=== PATIENT | female | born 1985 | race African-American/Black ===

== ENCOUNTER 2016-08-29 19:09 | Inpatient (IN) | payer BC, OTHER ==
[~2016-08-29] VITALS: Ht 180.3 cm; Wt 59.8 kg
[~2016-08-29 19:09] MED LIST: MACR100C PO; POLY10O EACH EYE; PYRI200T4 PO
[2016-08-29 19:13] VITALS: BP 132/83; PULSE 127; RESP 16; TEMP 102.8; O2SAT 97
--- NOTE | 2016-08-29 20:05 | PD ---
HPI Chief Complaint: Respiratory Symptoms Time Seen by Provider: 20:05 Travel History International Travel<30 days: No Contact w/Intl Traveler<30days: No Traveled to known affect area: No History of Present Illness HPI 31-year-old Afro-Iranian female presents the emergency department with 3 day history of generalized aches, cough, sore throat, and myalgias and generalized weakness. Patient has decreased appetite denies nausea vomiting or diarrhea. Patient denies urinary symptoms although she does have decreased urine output. Patient has noted a fever 102.5 in triage. Patient is very listless and weak. She denies shortness of breath or difficulty breathing. She has no known drug allergies. PFSH Past Medical History Depression: Yes Diabetes: No Diminished Hearing: No Immunizations Current: Yes ?: Not Menopausal: No : 5 Para: 4 Miscarriage: 2 : 1 Tubal Ligation: Yes Past Surgical History Section: Yes (X3) Hysterectomy: Yes (LEFT OOPHERECTOMY R/T TUBAL PREG) Social History Alcohol Use: No Tobacco Use: No Substance Use: No Allergies-Medications (Allergen,Severity, Reaction): Coded Allergies: No Known Allergies (Unverified , 08/29/16) Reported Meds & Prescriptions Reported Meds & Active Scripts Active No Active Prescriptions or Reported Medications Review of Systems Except as stated in HPI: all other systems reviewed are Neg General / Constitutional: Positive: Fever, Chills Eyes: No: Visual changes HENT: Positive: Headaches, Sore Throat, Rhinitis, Rhinorrhea, Congestion, No: Vertigo, Lightheadedness, Nosebleed, Neck Stiffness, Neck Pain, Dental Difficulties, Ear Discharge, Earache Cardiovascular: No: Chest Pain or Discomfort Respiratory: Positive: Cough, No: Shortness of Breath, Wheezing, Sneezing, Orthopnea, Hemoptysis, Pleuritic Pain Gastrointestinal: Positive: Loss of Appetite, No: Nausea, Vomiting, Diarrhea, Abdominal Pain Genitourinary: No: Dysuria Musculoskeletal: Positive: Myalgias, No: Pain Skin: No Rash Neurologic: No: Weakness Psychiatric: No: Depression Endocrine: No: Polydipsia Hematologic/Lymphatic: No: Easy Bruising Physical Exam Narrative GENERAL: Patient appears ill border going on sepsis, very listless and obviously sick. SKIN: Warm and dry. Normal color. Poor turgor. HEAD: Atraumatic. Normocephalic. EYES: Pupils equal and round. No scleral icterus. No injection or drainage. ENT: No nasal bleeding or discharge. Mucous membranes pink and dry. Pharynx is unremarkable. TMs are clear. NECK: Trachea midline. Supple and nontender without significant lymphadenopathy. CARDIOVASCULAR: Tachycardic rate and normal rhythm. RESPIRATORY: No accessory muscle use. Clear to auscultation. Breath sounds equal bilaterally. GASTROINTESTINAL: Abdomen soft, non-tender, nondistended. Hepatic and splenic margins not palpable. MUSCULOSKELETAL: Extremities without clubbing, cyanosis, or edema. No obvious deformities. NEUROLOGICAL: Awake and alert. No obvious cranial nerve deficits. Motor grossly within normal limits. Five out of 5 muscle strength in the arms and legs. Normal speech. PSYCHIATRIC: Appropriate mood and affect; insight and judgment normal. Data Data Last Documented VS Vital Signs Date Time Temp Pulse Resp B/P Pulse Ox O2 Delivery O2 Flow Rate FiO2 08/29/16 20:37 18 99 Room Air 08/29/16 20:09 103.2 108 117/73 Orders Complete Blood Count With Diff (08/29/16 20:16) Comprehensive Metabolic Panel (08/29/16 20:16) Lactic Acid (08/29/16 20:16) Urinalysis - C+S If Indicated (08/29/16 20:16) Iv Access Insert/Monitor (08/29/16 20:16) Ecg Monitoring (08/29/16 20:16) Oximetry (08/29/16 20:16) Ondansetron Inj (Zofran Inj) (08/29/16 20:30) Sodium Chlor 0.9% 1000 Ml Inj (Ns 1000 M (08/29/16 20:16) Sodium Chloride 0.9% Flush (Ns Flush) (08/29/16 20:30) Ketorolac Inj (Toradol Inj) (08/29/16 20:30) Chest, Single Ap (08/29/16 20:16) Blood Culture (08/29/16 20:16) Acetaminophen (Tylenol) (08/29/16 20:30) Influenzae A/B Antigen (08/29/16 20:16) Sodium Chlor 0.9% 1000 Ml Inj (Ns 1000 M (08/29/16 20:30) MDM Medical Decision Making Medical Screen Exam Complete: Yes Emergency Medical Condition: Yes Differential Diagnosis Viral illness. Febrile illness. Dehydration. Influenza. Pneumonia. Narrative Course Patient is ill but apparently medically stable at time of exam. Labs ordered including CBC, CMP, lactic acid, blood cultures 2, and urinalysis. Chest x-ray is ordered. Rapid influenza A is ordered. IV access is obtained of the patient is given 30 mg Toradol IV, 4 mg Zofran IV, and 1000 mg acetaminophen by mouth. Patient is given 2 L normal saline bolus. 2044 hrs. patient is discussed with Dr. Farah who assumes care of the patient. Final disposition will be determined by her. Scripts No Active Prescriptions or Reported Meds Condition: Stable Rashawn Higuera Aug 29, 2016 20:05
[2016-08-29 20:09] VITALS: BP 117/73; PULSE 108; RESP 18; TEMP 103.2; O2SAT 99
[2016-08-29] MEDS ORDERED: SODIUM CHLOR 0.9% 1000 ML INJ 1,000 ML IV SCH ×2 (20:16→23:30)
[2016-08-29] MEDS ORDERED: KETOROLAC TROMETHAMINE 30 MG/ML (IVP) VIAL IVP ONE (20:30)
[2016-08-29] MEDS ORDERED: ONDANSETRON HCL 4 MG/2 ML VIAL IVP ONE (20:30)
[2016-08-29] MEDS ORDERED: ACETAMINOPHEN 500 MG CPLT PO ONE (20:30)
[2016-08-29] MEDS ORDERED: SODIUM CHLOR 0.9% 1000 ML INJ 1,000 ML IV ONE (20:30)
[2016-08-29] MEDS: SODIUM CHLORIDE 0.9% FLUSH 5 ML FLUSH IVF PRN ×2 (20:34→23:13)
[2016-08-29 20:37] VITALS: RESP 18; O2SAT 99
[2016-08-29 20:48] LABS: AUTOMATED NEUTROPHIL # 4.8 TH/MM3 (1.8-7.7); BASOPHIL % 0.4 % (0.0-2.0); HEMATOCRIT 34.6 % (35.0-46.0); HEMO FLAGS DIFF FINAL; LYMPH % 12.8 % (9.0-44.0); LYMPHOCYTE # 0.8 TH/MM3 (1.0-4.8); MEAN CELL VOLUME 88.8 FL (80.0-100.0); MEAN CORPUSCULAR HEMOGLOBIN 29.6 PG (27.0-34.0); MEAN CORPUSCULAR HGB CONC 33.4 % (32.0-36.0); MONO % 11.3 % (0.0-8.0); NEUT % 75.5 % (16.0-70.0); PLATELET COUNT 108 TH/MM3 (150-450); RED CELL DISTRIBUTION WIDTH 14.1 % (11.6-17.2); WHITE BLOOD COUNT 6.3 TH/MM3 (4.0-11.0)
[2016-08-29 21:11] LABS: ANION GAP 12 MEQ/L (5-15); AST (GOT) 13 U/L (15-37); BICARBONATE 22.5 MEQ/L (21.0-32.0); BLOOD UREA NITROGEN 8 MG/DL (7-18); CHLORIDE 104 MEQ/L (98-107); GLOMERULAR FILTRATION RATE 52 ML/MIN (>89); SODIUM (NA) 138 MEQ/L (136-145)
[2016-08-29 21:14] LABS: ALKALINE PHOSPHATASE 55 U/L (45-117); ALT (GPT) 17 U/L (10-53); TOTAL BILIRUBIN ADULT 0.3 MG/DL (0.2-1.0)
--- NOTE | 2016-08-29 21:30 | RADRPT ---
EXAM DATE/TIME: 08/29/2016 20:25 [facility] COMPARISON: No previous studies available for comparison. INDICATIONS : SOB, Fever MEDICAL HISTORY : None. SURGICAL HISTORY : None. ENCOUNTER: Initial ACUITY: 1 day PAIN SCORE: 0/10 LOCATION: chest FINDINGS: A single view of the chest demonstrates the lungs to be symmetrically aerated without evidence of mas s, infiltrate or effusion. The cardiomediastinal contours are unremarkable. Osseous structures are intact. CONCLUSION: No evidence of acute cardiopulmonary disease. Tom Freeman MD on August 29, 2016 at 21:28 Board Certified Radiologist. This report was verified electronically.
[2016-08-29 21:53] VITALS: TEMP 100.1
[2016-08-29 22:40] LABS: BACTERIA, URINE FEW /hpf; BLOOD, URINE SMALL (NEG); COMMENT (UR) CULTURE INDICATED; CULTURE IF INDICATED CULTURE INDICATED; GLUCOSE,URINE TRACE mg/dL (NEG); KETONE, URINE 10 mg/dL (NEG); MUCUS URINE MANY /lpf (OCC); NITRITE,URINE NEG (NEG); PH, URINE 6.5 (5.0-8.5); SQUAMOUS EPITHELIAL CELL URINE 3 /hpf (0-5); URINE COLOR YELLOW (YELLW/STRAW)
[2016-08-29] MEDS ORDERED: cefTRIAXone INJ 1,000 MG in SODIUM CHLORIDE 0.9% INJ 100 ML IV ONE (23:00)
--- NOTE | 2016-08-29 23:36 | HHI.HP ---
[facility] Primary Care Physician No Primary Care Physician Admission Diagnosis sepsis, urinary tract infection Diagnoses: (1) Sepsis Diagnosis: Principal (2) UTI (urinary tract infection) Diagnosis: Principal (3) JOE (acute kidney injury) Diagnosis: Principal (4) Hypokalemia Diagnosis: Principal Travel History International Travel<30 Days: No Contact w/Intl Traveler <30 Da: No Traveled to Known Affected Are: No History of Present Illness This is a 31-year-old female with a PMH of Depression who presents to the ER with complaints of generalized fatigue, nonproductive cough and sore throat x3 days. Notes decreased PO intake and fever at home, temp 102.5 while in triage. Denies sick contacts. On arrival, BP 132/83, HR 127, O2 sat 97% on RA, Temp 102.8, Tmax 103.2. WBC normal. Platelets 108, previously 125 on 07/03/14. K+ 3.0. Creatinine 1.43, previously 0.94 on 05/24/16. Lactic Acid 3.3, repeat pending. U/a w/ significant UTI. CXR w/ no acute findings. S/p Blood/Urine cultures in ER, IVF and IV Rocephin. Review of Systems Except as stated in HPI: all other systems reviewed are Neg ROS: 14 point review of systems otherwise negative. Past Family Social History Past Medical History PMH: Depression Past Surgical History PAST SURGICAL HISTORY: Left Oophorectomy, Allergies: Coded Allergies: No Known Allergies (Unverified , 08/29/16) Family History PAST FAMILY HISTORY: Reviewed. No h/o DM or CAD Social History PAST SOCIAL HISTORY: Negative for alcohol, tobacco or drugs. Physical Exam Vital Signs Vital Signs Date Time Temp Pulse Resp B/P Pulse Ox O2 Delivery O2 Flow Rate FiO2 08/29/16 21:53 100.1 08/29/16 20:37 18 99 Room Air 08/29/16 20:09 103.2 108 18 117/73 99 Room Air 08/29/16 19:13 102.8 127 16 132/83 97 Room Air Physical Exam PE: GENERAL: Young black female in no acute distress, flat affect, minimally communicative. HEENT: PERRLA, EOMI. No scleral icterus or conjunctival pallor. No lid lag or facial droop. CARDIOVASCULAR: Regular rate and rhythm. No obvious murmurs to auscultation. No chest tenderness to palpation. RESPIRATORY: No obvious rhonchi or wheezing. Clear to auscultation. Breath sounds equal bilaterally. GASTROINTESTINAL: Abdomen soft, non-tender, nondistended. BS normal. MUSCULOSKELETAL: Extremities without clubbing, cyanosis, or edema. No obvious deformities. NEUROLOGICAL: Awake, alert and oriented x4. No focal neurologic deficits. Moving both upper and lower extremities spontaneously. Laboratory Laboratory Tests Test 08/29/16 08/29/16 08/29/16 20:27 20:32 22:15 White Blood Count 6.3 Red Blood Count 3.90 Hemoglobin 11.6 Hematocrit 34.6 Mean Corpuscular Volume 88.8 Mean Corpuscular Hemoglobin 29.6 Mean Corpuscular Hemoglobin 33.4 Concent Red Cell Distribution Width 14.1 Platelet Count 108 Mean Platelet Volume 10.3 Neutrophils (%) (Auto) 75.5 Lymphocytes (%) (Auto) 12.8 Monocytes (%) (Auto) 11.3 Eosinophils (%) (Auto) 0.0 Basophils (%) (Auto) 0.4 Neutrophils # (Auto) 4.8 Lymphocytes # (Auto) 0.8 Monocytes # (Auto) 0.7 Eosinophils # (Auto) 0.0 Basophils # (Auto) 0.0 CBC Comment DIFF FINAL Differential Comment Sodium Level 138 Potassium Level 3.0 Chloride Level 104 Carbon Dioxide Level 22.5 Anion Gap 12 Blood Urea Nitrogen 8 Creatinine 1.43 Estimat Glomerular Filtration 52 Rate Random Glucose 145 Calcium Level 8.4 Total Bilirubin 0.3 Aspartate Amino Transf 13 (AST/SGOT) Alanine Aminotransferase 17 (ALT/SGPT) Alkaline Phosphatase 55 Total Protein 8.9 Albumin 3.3 Lactic Acid Level 3.3 Urine Color YELLOW Urine Turbidity HAZY Urine pH 6.5 Urine Specific [place] 1.031 Urine Protein 100 Urine Glucose (UA) TRACE Urine Ketones 10 Urine Occult Blood SMALL Urine Nitrite NEG Urine Bilirubin NEG Urine Urobilinogen GREATER THAN 12.0 Urine Leukocyte Esterase LARGE Urine RBC 12 Urine WBC 80 Urine Squamous Epithelial 3 Cells Urine Bacteria FEW Urine Mucus MANY Microscopic Urinalysis Comment CULTURE INDICATED Date/Time Procedure Status Source Growth 08/29/16 22:15 Urine Culture Received Urine Clean Catch Pending 08/29/16 21:45 Aerobic Blood Culture Received Blood Peripheral Pending 08/29/16 21:45 Anaerobic Blood Culture Received Blood Peripheral Pending 08/29/16 20:28 Influenza Types A,B Antigen (RULA) - Final Complete Nasal Washing NEGATIVE FOR FLU A AND B ANTIGEN.... Result Diagram: 08/29/16202608/29/162026 Assessment and Plan Problem List: (1) Sepsis ICD Code: A41.9 Status: Acute (2) UTI (urinary tract infection) ICD Code: N39.0 Status: Acute (3) JOE (acute kidney injury) ICD Code: N17.9 Status: Acute (4) Hypokalemia ICD Code: E87.6 Status: Acute Assessment and Plan A/P: 1. Sepsis: Temp 103.2, HR 120's, Lactic Acid 3.3, Source-UTI. S/p Blood/ Urine Cultures, IVF and IV Rocephin in ER. Follow up cultures, continue IVF and IV Abx. CXR w/ no acute findings, images reviewed by me. Repeat Lactic Acid pending. 2. UTI: U/a w/ significant UTI. Continue w/ IVF and IV Abx as above. 3. JOE: Creatinine 1.43, previously 0.94 on 05/24/16, likely secondary to dehydration from UTI/Sepsis. IVF, repeat labs in am. 4. Hypokalemia: K+ 3.0, will replace and recheck in am. 5. DVT Prophylaxis: SCD/Teds. 6. Social work for d/c planning as needed. 7. Case discussed w/ ER physician at length. Physician Certification 2 Midnight Certification Type: Admission for Inpatient Services Order for Inpatient Services The services are ordered in accordance with Medicare regulations or non- Medicare payer requirements, as applicable. In the case of services not specified as inpatient-only, they are appropriately provided as inpatient services in accordance with the 2-midnight benchmark. Estimated LOS (days): 2 days is the estimated time the patient will need to remain in the hospital, assuming treatment plan goals are met and no additional complications. Post-Hospital Plan: Home Heather Farias MD Aug 29, 2016 23:36
[2016-08-29] MEDS ORDERED: SODIUM CHLORIDE 0.9% FLUSH 5 ML FLUSH FLUSH PRN (23:45)
[2016-08-29] MEDS ORDERED: BISACODYL 10 MG SUPP PR PRN (23:45)
[2016-08-29] MEDS ORDERED: POTASSIUM CHLORIDE 20 MEQ CONTROLLED RELEASE TAB PO ONE (23:45)
[2016-08-29] MEDS ORDERED: ONDANSETRON HCL 4 MG/2 ML VIAL IVP PRN (23:45)
[2016-08-29] MEDS ORDERED: ACETAMINOPHEN/HYDROcodone 325 MG/5 MG TAB PO PRN (23:45)
[2016-08-29] MEDS: SODIUM CHLOR 0.9% 1000 ML INJ 1,000 ML IV SCH (23:54)
[2016-08-30] VITALS (11 sets, daily range): BP systolic 116–154; BP diastolic 73–92; PULSE 69–120; RESP 16–24; TEMP 99.4–105; O2SAT 92–100
--- NOTE | 2016-08-30 00:49 | PD ---
Data Data Last Documented VS Vital Signs Date Time Temp Pulse Resp B/P Pulse Ox O2 Delivery O2 Flow Rate FiO2 08/29/16 21:53 100.1 08/29/16 20:37 18 99 Room Air 08/29/16 20:09 108 117/73 Orders Complete Blood Count With Diff (08/29/16 20:16) Comprehensive Metabolic Panel (08/29/16 20:16) Lactic Acid (08/29/16 20:16) Urinalysis - C+S If Indicated (08/29/16 20:16) Iv Access Insert/Monitor (08/29/16 20:16) Ecg Monitoring (08/29/16 20:16) Oximetry (08/29/16 20:16) Ondansetron Inj (Zofran Inj) (08/29/16 20:30) Sodium Chlor 0.9% 1000 Ml Inj (Ns 1000 M (08/29/16 20:16) Sodium Chloride 0.9% Flush (Ns Flush) (08/29/16 20:30) Ketorolac Inj (Toradol Inj) (08/29/16 20:30) Chest, Single Ap (08/29/16 20:16) Blood Culture (08/29/16 20:16) Acetaminophen (Tylenol) (08/29/16 20:30) Influenzae A/B Antigen (08/29/16 20:16) Sodium Chlor 0.9% 1000 Ml Inj (Ns 1000 M (08/29/16 20:30) Urine Culture (08/29/16 22:15) Ceftriaxone Inj (Rocephin Inj) (08/29/16 23:00) Lactic Acid (08/29/16 22:47) Sodium Chlor 0.9% 1000 Ml Inj (Ns 1000 M (08/29/16 23:30) Admit Order (Ed Use Only) (08/29/16 ) Labs Laboratory Tests Test 08/29/16 08/29/16 08/29/16 08/29/16 20:27 20:32 22:15 23:10 White Blood Count 6.3 TH/MM3 Red Blood Count 3.90 MIL/MM3 Hemoglobin 11.6 GM/DL Hematocrit 34.6 % Mean Corpuscular Volume 88.8 FL Mean Corpuscular Hemoglobin 29.6 PG Mean Corpuscular Hemoglobin 33.4 % Concent Red Cell Distribution Width 14.1 % Platelet Count 108 TH/MM3 Mean Platelet Volume 10.3 FL Neutrophils (%) (Auto) 75.5 % Lymphocytes (%) (Auto) 12.8 % Monocytes (%) (Auto) 11.3 % Eosinophils (%) (Auto) 0.0 % Basophils (%) (Auto) 0.4 % Neutrophils # (Auto) 4.8 TH/MM3 Lymphocytes # (Auto) 0.8 TH/MM3 Monocytes # (Auto) 0.7 TH/MM3 Eosinophils # (Auto) 0.0 TH/MM3 Basophils # (Auto) 0.0 TH/MM3 CBC Comment DIFF FINAL Differential Comment Sodium Level 138 MEQ/L Potassium Level 3.0 MEQ/L Chloride Level 104 MEQ/L Carbon Dioxide Level 22.5 MEQ/L Anion Gap 12 MEQ/L Blood Urea Nitrogen 8 MG/DL Creatinine 1.43 MG/DL Estimat Glomerular Filtration 52 ML/MIN Rate Random Glucose 145 MG/DL Calcium Level 8.4 MG/DL Total Bilirubin 0.3 MG/DL Aspartate Amino Transf 13 U/L (AST/SGOT) Alanine Aminotransferase 17 U/L (ALT/SGPT) Alkaline Phosphatase 55 U/L Total Protein 8.9 GM/DL Albumin 3.3 GM/DL Lactic Acid Level 3.3 mmol/L 0.8 mmol/L Urine Color YELLOW Urine Turbidity HAZY Urine pH 6.5 Urine Specific [place] 1.031 Urine Protein 100 mg/dL Urine Glucose (UA) TRACE mg/dL Urine Ketones 10 mg/dL Urine Occult Blood SMALL Urine Nitrite NEG Urine Bilirubin NEG Urine Urobilinogen GREATER THAN 12.0 MG/DL Urine Leukocyte Esterase LARGE Urine RBC 12 /hpf Urine WBC 80 /hpf Urine Squamous Epithelial 3 /hpf Cells Urine Bacteria FEW /hpf Urine Mucus MANY /lpf Microscopic Urinalysis Comment CULTURE INDICATED MDM Supervised Visit with ALLIE: Yes Narrative Course The history, exam, and medical decision-making in the associated midlevel provider note were completed with my assistance. I reviewed and agree with the findings presented. I attest that I had a [id number] encounter with the patient on the same day, and personally performed and documented my assessment and findings in the medical record. *My assessment and Findings: This is a 31-year-old female who presents to the emergency department with fevers, chills and body aches. She was febrile on arrival. She was found to have a urinary tract infection. She is somewhat bizarre and exam, and I think it's due to underlying psychiatric disease but I' m concerned she may have some delirium in the setting of dehydration. She has an elevated lactic acid and some renal insufficiency consistent with dehydration. Patient will be admitted for IV hydration and continued antibiotic therapy in the setting of sepsis. Diagnosis Primary Impression: Sepsis Qualified Code: A41.9 - Sepsis, due to unspecified organism Additional Impression: UTI (urinary tract infection) Qualified Code: N30.00 - Acute cystitis without hematuria Scripts No Active Prescriptions or Reported Meds Condition: Stable Jana Farah MD Aug 30, 2016 00:49
[2016-08-30] MEDS: ACETAMINOPHEN/HYDROcodone 325 MG/10 MG TAB PO PRN ×2 (04:29→08:28)
[2016-08-30 05:49] LABS: AUTOMATED NEUTROPHIL # 3.2 TH/MM3 (1.8-7.7); BASOPHIL % 0.3 % (0.0-2.0); EOSINOPHIL % 0.3 % (0.0-4.0); LYMPH % 22.6 % (9.0-44.0); LYMPHOCYTE # 1.1 TH/MM3 (1.0-4.8); MEAN CELL VOLUME 89.8 FL (80.0-100.0); MEAN CORPUSCULAR HEMOGLOBIN 29.8 PG (27.0-34.0); MEAN CORPUSCULAR HGB CONC 33.2 % (32.0-36.0); MONO % 12.4 % (0.0-8.0); NEUT % 64.4 % (16.0-70.0); PLATELET COUNT 80 TH/MM3 (150-450); RED BLOOD COUNT 3.35 MIL/MM3 (4.00-5.30); RED CELL DISTRIBUTION WIDTH 13.9 % (11.6-17.2)
[2016-08-30 05:52] LABS: HEMO FLAGS AUTO DIFF
[2016-08-30] MEDS: SODIUM CHLOR 0.9% 1000 ML INJ 1,000 ML IV SCH ×3 (06:10→19:13)
[2016-08-30 06:24] LABS: ALKALINE PHOSPHATASE 42 U/L (45-117); ALT (GPT) 14 U/L (10-53); ANION GAP 9 MEQ/L (5-15); AST (GOT) 11 U/L (15-37); BICARBONATE 21.7 MEQ/L (21.0-32.0); BLOOD UREA NITROGEN 7 MG/DL (7-18); CHLORIDE 112 MEQ/L (98-107); GLOMERULAR FILTRATION RATE 117 ML/MIN (>89); POTASSIUM 3.9 MEQ/L (3.5-5.1); SODIUM (NA) 143 MEQ/L (136-145); TOTAL BILIRUBIN ADULT 0.4 MG/DL (0.2-1.0)
[2016-08-30 07:34] LABS: PLATELET ESTIMATE SMEAR LOW (NORMAL); PLATELET MORPHOLOGY NORMAL (NORMAL); SCAN/DIFF AUTO DIFF CONFIRMED
[2016-08-30] MEDS: SODIUM CHLORIDE 0.9% FLUSH 5 ML FLUSH FLUSH SCH ×2 (07:36→21:33)
--- NOTE | 2016-08-30 10:56 | HHI.PR ---
Subjective Remarks Patient complained of sore throat, she had a fever of 100 per the nurse today, no nausea or vomiting or diarrhea or dysuria Objective Vitals Vital Signs Date Time Temp Pulse Resp B/P Pulse Ox O2 Delivery O2 Flow Rate FiO2 08/30/16 09:45 100.0 08/30/16 08:47 100.1 97 16 123/74 98 08/30/16 06:09 16 08/30/16 04:00 99.5 89 17 116/78 99 08/30/16 01:51 86 17 116/76 100 08/30/16 00:00 69 18 116/80 100 Room Air 08/29/16 21:53 100.1 08/29/16 20:37 18 99 Room Air 08/29/16 20:09 103.2 108 18 117/73 99 Room Air 08/29/16 19:13 102.8 127 16 132/83 97 Room Air Result Diagram: 08/30/16 0509 08/30/16 0509 Objective Remarks GENERAL: This is a well-nourished, well-developed patient, in no apparent distress. SKIN: No rashes, warm and dry HEAD: Atraumatic. Normocephalic. EYES: Pupils equal round and reactive. Extraocular motions intact. No scleral icterus. ENT: Nose without bleeding, or drainage, Airway patent. NECK: Trachea midline. Supple CARDIOVASCULAR: Regular rate and rhythm without murmurs, gallops, or rubs. RESPIRATORY: Fair air entry bilaterally. No wheezes, rales, or rhonchi. GASTROINTESTINAL: Abdomen soft, non-tender, nondistended. Positive bowel sounds MUSCULOSKELETAL: Extremities without clubbing, cyanosis, or edema. Pedal pulses appreciated NEUROLOGICAL: Awake and alert. Moves all extremity. Normal speech.no focal neurological deficit A/P Problem List: (1) Sepsis ICD Code: A41.9 Status: Acute (2) UTI (urinary tract infection) ICD Code: N39.0 Status: Acute (3) JOE (acute kidney injury) ICD Code: N17.9 Status: Acute (4) Hypokalemia ICD Code: E87.6 Status: Acute Assessment and Plan - Sepsis with lactic acidosis: Temp 103.2, HR 120's, Lactic Acid 3.3, Source- UTI. S/p Blood/Urine Cultures, continue IVF and IV Rocephin Follow up cultures, CXR w/ no acute findings, images reviewed by me. Repeat Lactic Acid WNL 0.8, initially 3.3 - Sore throat with difficulty swallowing: We'll check throat culture for group A strep and influenza screening - UTI: U/a w/ significant UTI. Continue w/ IVF and IV Abx as above. - JOE: Creatinine 1.43, previously 0.94 on 05/24/16, likely secondary to dehydration from UTI/Sepsis. IVF, repeat labs in am. - Hypokalemia: Improved 3.9 today, initially K+ 3.0, S/P replace, monitor BMP. - DVT Prophylaxis: SCD/Teds. Problem Qualifiers (1) Sepsis: Qualified Code: A41.9 - Sepsis, due to unspecified organism (2) UTI (urinary tract infection): Qualified Code: N30.00 - Acute cystitis without hematuria Darwin Hartmann MD Aug 30, 2016 10:56
[2016-08-30] MEDS: ACETAMINOPHEN 325 MG TAB PO PRN (12:09)
[2016-08-30] MEDS ORDERED: Vancomycin Consult Pharmacy 1 EA OTHER SCH (17:15)
[2016-08-30] MEDS ORDERED: ACETAMINOPHEN 1000 MG/100 ML VIAL IV STA (17:23)
[2016-08-30] MEDS ORDERED: LORazepam 2 MG/ML VIAL IV STA (17:23)
--- NOTE | 2016-08-30 17:40 | PD.CONS ---
HPI Service Critical Care Medicine Consult Requested By Reason for Consult Fever Primary Care Physician No Primary Care Physician History of Present Illness 31-year-old female with a history of Depression presented to the emergency room with complaints of generalized fatigue, nonproductive cough and sore throat x3 days. She had also decreased I mouth intake and fever at home, temp 102.5 while in triage. Denies sick contacts. On arrival, BP 132/83, HR 127, O2 sat 97% on RA, Tmax 103.2. WBC normal. Platelets 108, previously 125 on 07/03/14. Patient was admitted to medical floor however today became more febrile with temperature 105, looking more ill and is transferred to ICU. Review of Systems ROS Unable to obtain patient is too lethargic Past Family Social History Allergies: Coded Allergies: No Known Allergies (Unverified , 08/29/16) Past Medical History Depression Past Surgical History Left Oophorectomy, Reported Medications Reported Meds & Active Scripts Active No Active Prescriptions or Reported Medications Active Ordered Medications Current Medications Medications (Trade) Dose Ordered Sig/Ihs Route PRN Reason Start Time Stop Time Status Last Admin Dose Admin Ceftriaxone Sodium 1000 mg/ Sodium Chloride 100 ml @ 200 mls/hr Q24H IV 08/30/16 21:00 Sodium Chloride (NS 1000 ml Inj) 1,000 ml @ 150 mls/hr Q6H40M IV 08/29/16 23:33 08/30/16 11:30 IV Flush (NS Flush) 2 ml UNSCH PRN FLUSH FLUSH AFTER USING IV ACCESS 08/29/16 23:45 IV Flush (NS Flush) 2 ml BID FLUSH 08/30/16 09:00 Ondansetron HCl (Zofran Inj) 4 mg Q6H PRN IVP NAUSEA OR VOMITING 08/29/16 23:45 Bisacodyl (Dulcolax Supp) 10 mg DAILY PRN NC CONSTIPATION 08/29/16 23:45 Acetaminophen (Tylenol) 650 mg Q6H PRN PO FEVER/PAIN SCALE 1 TO 2 08/29/16 23:45 08/30/16 12:09 Acetaminophen/ Hydrocodone Bitart ([place] 5-325 Mg) 1 tab Q4H PRN PO PAIN SCALE 3 TO 5 08/29/16 23:45 Acetaminophen/ Hydrocodone Bitart 1 tab 1 tab Q4H PRN PO PAIN SCALE 6 TO 10 08/29/16 23:45 08/30/16 08:28 Pharmacy Profile Note ml @ 0 mls/hr UNSCH OTHER 08/30/16 17:15 Vancomycin HCl/ Sodium Chloride (Vancomycin Inj/ NS 250 ml Inj) 250 ml @ 250 mls/hr Q8H IV 08/30/16 18:00 Miscellaneous Information SPECIFIC LAB TO BE DRAWN:VANCOMY... ONCE ONCE XX 09/01/16 01:45 09/01/16 01:46 Piperacillin Sod/ Tazobactam Sod (Zosyn 4.5 Gm Premix) 100 ml @ 200 mls/hr Q6H IV 08/30/16 18:00 Family History Noncontributory Social History Negative for tobacco alcohol or illicit drug abuse Physical Exam Vital Signs Vital Signs Date Time Temp Pulse Resp B/P Pulse Ox O2 Delivery O2 Flow Rate FiO2 08/30/16 12:51 101.3 120 16 124/73 99 08/30/16 09:45 100.0 08/30/16 08:47 100.1 97 16 123/74 98 08/30/16 06:09 16 08/30/16 04:00 99.5 89 17 116/78 99 08/30/16 01:51 86 17 116/76 100 08/30/16 00:00 69 18 116/80 100 Room Air 08/29/16 21:53 100.1 08/29/16 20:37 18 99 Room Air 08/29/16 20:09 103.2 108 18 117/73 99 Room Air 08/29/16 19:13 102.8 127 16 132/83 97 Room Air Physical Exam GENERAL: Well-nourished, well-developed patient. SKIN: Warm and dry. HEAD: Normocephalic. EYES: No scleral icterus. No injection or drainage. NECK: Supple, trachea midline. No JVD or lymphadenopathy. CARDIOVASCULAR: Regular rate and rhythm without murmurs, gallops, or rubs. RESPIRATORY: Breath sounds equal bilaterally. No accessory muscle use. GASTROINTESTINAL: Abdomen soft, non-tender, nondistended. MUSCULOSKELETAL: No cyanosis, or edema. BACK: Nontender without obvious deformity. No CVA tenderness. Laboratory Laboratory Tests Test 08/29/16 08/29/16 08/29/16 08/29/16 20:27 20:32 22:15 23:10 White Blood Count 6.3 Red Blood Count 3.90 Hemoglobin 11.6 Hematocrit 34.6 Mean Corpuscular Volume 88.8 Mean Corpuscular Hemoglobin 29.6 Mean Corpuscular Hemoglobin 33.4 Concent Red Cell Distribution Width 14.1 Platelet Count 108 Mean Platelet Volume 10.3 Neutrophils (%) (Auto) 75.5 Lymphocytes (%) (Auto) 12.8 Monocytes (%) (Auto) 11.3 Eosinophils (%) (Auto) 0.0 Basophils (%) (Auto) 0.4 Neutrophils # (Auto) 4.8 Lymphocytes # (Auto) 0.8 Monocytes # (Auto) 0.7 Eosinophils # (Auto) 0.0 Basophils # (Auto) 0.0 CBC Comment DIFF FINAL Differential Comment Sodium Level 138 Potassium Level 3.0 Chloride Level 104 Carbon Dioxide Level 22.5 Anion Gap 12 Blood Urea Nitrogen 8 Creatinine 1.43 Estimat Glomerular Filtration 52 Rate Random Glucose 145 Calcium Level 8.4 Total Bilirubin 0.3 Aspartate Amino Transf 13 (AST/SGOT) Alanine Aminotransferase 17 (ALT/SGPT) Alkaline Phosphatase 55 Total Protein 8.9 Albumin 3.3 Lactic Acid Level 3.3 0.8 Urine Color YELLOW Urine Turbidity HAZY Urine pH 6.5 Urine Specific [place] 1.031 Urine Protein 100 Urine Glucose (UA) TRACE Urine Ketones 10 Urine Occult Blood SMALL Urine Nitrite NEG Urine Bilirubin NEG Urine Urobilinogen GREATER THAN 12.0 Urine Leukocyte Esterase LARGE Urine RBC 12 Urine WBC 80 Urine Squamous Epithelial 3 Cells Urine Bacteria FEW Urine Mucus MANY Microscopic Urinalysis Comment CULTURE INDICATED Test 08/30/16 05:09 White Blood Count 5.0 Red Blood Count 3.35 Hemoglobin 10.0 Hematocrit 30.0 Mean Corpuscular Volume 89.8 Mean Corpuscular Hemoglobin 29.8 Mean Corpuscular Hemoglobin 33.2 Concent Red Cell Distribution Width 13.9 Platelet Count 80 Mean Platelet Volume 9.9 Neutrophils (%) (Auto) 64.4 Lymphocytes (%) (Auto) 22.6 Monocytes (%) (Auto) 12.4 Eosinophils (%) (Auto) 0.3 Basophils (%) (Auto) 0.3 Neutrophils # (Auto) 3.2 Lymphocytes # (Auto) 1.1 Monocytes # (Auto) 0.6 Eosinophils # (Auto) 0.0 Basophils # (Auto) 0.0 CBC Comment AUTO DIFF Differential Comment AUTO DIFF CONFIRMED Platelet Estimate LOW Platelet Morphology Comment NORMAL Sodium Level 143 Potassium Level 3.9 Chloride Level 112 Carbon Dioxide Level 21.7 Anion Gap 9 Blood Urea Nitrogen 7 Creatinine 0.71 Estimat Glomerular Filtration 117 Rate Random Glucose 82 Calcium Level 7.5 Total Bilirubin 0.4 Aspartate Amino Transf 11 (AST/SGOT) Alanine Aminotransferase 14 (ALT/SGPT) Alkaline Phosphatase 42 Total Protein 6.9 Albumin 2.5 Date/Time Procedure Status Source Growth 08/30/16 12:00 Throat Culture Received Throat Pending 08/29/16 22:15 Urine Culture - Preliminary Resulted Urine Clean Catch IMMATURE GROWTH - REINCUBATE 08/29/16 21:45 Aerobic Blood Culture - Preliminary Resulted Blood Peripheral Gram Positive Cocci 08/29/16 21:45 Anaerobic Blood Culture - Preliminary Resulted Blood Peripheral NO GROWTH IN 1 DAY 08/29/16 20:28 Influenza Types A,B Antigen (RULA) - Final Complete Nasal Washing NEGATIVE FOR FLU A AND B ANTIGEN.... Result Diagram: 08/30/16 0509 08/30/16 0509 Assessment and Plan Problem List: (1) UTI (urinary tract infection) ICD Code: N39.0 Status: Acute (2) Sepsis ICD Code: A41.9 Status: Acute (3) JOE (acute kidney injury) ICD Code: N17.9 Status: Acute Assessment and Plan Fever - Unclear etiology - UTI sepsis - Broad-spectrum antibiotics - Follow-up cultures - Follow-up ID recommendation - Tox screen to rule out toxic etiology - IV steroids trial Acute kidney injury - Volume loss - Aggressive IV fluid resuscitation DVT GI prophylaxis -Teds SCD Pepcid Critical Care: The total critical care time was 35 minutes. Time to perform other separately billable procedures was not included in the critical care time. Problem Qualifiers (1) UTI (urinary tract infection): Qualified Code: N30.00 - Acute cystitis without hematuria (2) Sepsis: Qualified Code: A41.9 - Sepsis, due to unspecified organism Juanpablo Ashford MD Aug 30, 2016 17:40
[2016-08-30] MEDS ORDERED: SODIUM CHLOR 0.9% 1000 ML INJ 1,000 ML IV ONE (18:15)
[2016-08-30] MEDS: VANCOMYCIN 1,000 MG/NS 250 ML IV SCH ×2 (18:20)
[2016-08-30] MEDS: PIPERACIL-TAZO 4.5 GM PREMIX 100 ML IV SCH ×2 (18:20→23:50)
[2016-08-30] MEDS: methylPREDNISolone SOD SUCC 40 MG/1 ML VIAL IV PUSH SCH ×2 (18:21→23:49)
[2016-08-30 19:38] LABS: AMPHETAMINE, URINE NEG (NEG); BARBITURATES, URINE NEG (NEG); COCAINE, URINE NEG (NEG)
[2016-08-30] MEDS ORDERED: cefTRIAXone INJ 1,000 MG in SODIUM CHLORIDE 0.9% INJ 100 ML IV SCH (21:00)
[2016-08-30 21:12] LABS: AUTOMATED NEUTROPHIL # 4.9 TH/MM3 (1.8-7.7); BASOPHIL % 0.2 % (0.0-2.0); EOSINOPHIL % 0.3 % (0.0-4.0); HEMATOCRIT 30.1 % (35.0-46.0); LYMPH % 9.2 % (9.0-44.0); LYMPHOCYTE # 0.5 TH/MM3 (1.0-4.8); MEAN CELL VOLUME 89.6 FL (80.0-100.0); MEAN CORPUSCULAR HEMOGLOBIN 29.4 PG (27.0-34.0); MEAN CORPUSCULAR HGB CONC 32.8 % (32.0-36.0); MONO % 4.2 % (0.0-8.0); NEUT % 86.1 % (16.0-70.0); PLATELET COUNT 92 TH/MM3 (150-450); RED BLOOD COUNT 3.36 MIL/MM3 (4.00-5.30); RED CELL DISTRIBUTION WIDTH 14.1 % (11.6-17.2); WHITE BLOOD COUNT 5.7 TH/MM3 (4.0-11.0)
[2016-08-30 21:17] LABS: HEMO FLAGS AUTO DIFF
[2016-08-30 21:46] LABS: ANION GAP 11 MEQ/L (5-15); AST (GOT) 15 U/L (15-37); BICARBONATE 21.3 MEQ/L (21.0-32.0); BLOOD UREA NITROGEN 3 MG/DL (7-18); CHLORIDE 109 MEQ/L (98-107); GLOMERULAR FILTRATION RATE 72 ML/MIN (>89); POTASSIUM 3.8 MEQ/L (3.5-5.1); SODIUM (NA) 141 MEQ/L (136-145)
[2016-08-30 21:49] LABS: ALKALINE PHOSPHATASE 52 U/L (45-117); ALT (GPT) 17 U/L (10-53); BANDS 23 % (0-6); BASOPHILS 1 % (0-2); NEUTROPHIL # MANUAL DIFF 4.9 TH/MM3 (1.8-7.7); PLATELET ESTIMATE SMEAR LOW (NORMAL); PLATELET MORPHOLOGY ENLARGED (NORMAL); POLYS (SEG NEUTROPHILS) 63 % (16-70); SCAN/DIFF FINAL DIFF MANUAL; TOTAL BILIRUBIN ADULT 0.3 MG/DL (0.2-1.0); WBC DIFF SAMPLE 100
[2016-08-30 21:55] LABS: CREATINE KINASE 53 U/L (26-192)
[2016-08-30 22:05] LABS: CHLAMYDIA PCR NOT DETECTED (NOT DETECT); NEISSERIA PCR NOT DETECTED (NOT DETECT)
[2016-08-31] VITALS (9 sets, daily range): BP systolic 131–161; BP diastolic 85–102; PULSE 56–79; RESP 16–22; TEMP 97.7–99; O2SAT 99–100
[2016-08-31] MEDS: SODIUM CHLOR 0.9% 1000 ML INJ 1,000 ML IV SCH ×3 (00:13→10:49)
[2016-08-31] MEDS: VANCOMYCIN 1,000 MG/NS 250 ML IV SCH ×6 (01:29→18:17)
[2016-08-31 04:41] LABS: AUTOMATED NEUTROPHIL # 3.9 TH/MM3 (1.8-7.7); BASOPHIL % 0.1 % (0.0-2.0); HEMATOCRIT 30.9 % (35.0-46.0); LYMPH % 8.8 % (9.0-44.0); LYMPHOCYTE # 0.4 TH/MM3 (1.0-4.8); MEAN CELL VOLUME 88.9 FL (80.0-100.0); MEAN CORPUSCULAR HEMOGLOBIN 29.1 PG (27.0-34.0); MEAN CORPUSCULAR HGB CONC 32.7 % (32.0-36.0); MONO % 2.2 % (0.0-8.0); NEUT % 88.9 % (16.0-70.0); PLATELET COUNT 90 TH/MM3 (150-450); RED BLOOD COUNT 3.48 MIL/MM3 (4.00-5.30); WHITE BLOOD COUNT 4.3 TH/MM3 (4.0-11.0)
[2016-08-31 04:48] LABS: HEMO FLAGS DIFF FINAL
[2016-08-31 04:59] LABS: BICARBONATE 20.5 MEQ/L (21.0-32.0)
[2016-08-31] MEDS: methylPREDNISolone SOD SUCC 40 MG/1 ML VIAL IV PUSH SCH (05:11)
[2016-08-31] MEDS: PIPERACIL-TAZO 4.5 GM PREMIX 100 ML IV SCH ×3 (05:12→19:33)
[2016-08-31] MEDS: SODIUM CHLORIDE 0.9% FLUSH 5 ML FLUSH FLUSH SCH ×2 (07:56→19:49)
[2016-08-31] MEDS ORDERED: ENALAPRILAT 1.25 MG/ML VIAL IV PRN (09:00)
--- NOTE | 2016-08-31 10:37 | HHI.PR ---
Subjective Remarks Patient seen in follow-up for sepsis, UTI, bacteremia, high-grade fever. Patient reluctant to provide any history. Would only say she has a sore throat. Denies pain. Afebrile this morning. Objective Vitals Vital Signs Date Time Temp Pulse Resp B/P Pulse Ox O2 Delivery O2 Flow Rate FiO2 08/31/16 08:00 58 08/31/16 08:00 98.3 58 18 161/97 99 08/31/16 07:00 63 08/31/16 06:00 70 08/31/16 04:00 75 08/31/16 04:00 99.0 75 22 131/86 100 08/31/16 02:00 79 08/31/16 00:00 73 08/31/16 00:00 98.9 73 20 149/85 100 08/30/16 22:00 87 08/30/16 20:00 99.4 97 24 147/92 100 08/30/16 20:00 115 08/30/16 18:00 104.1 114 24 154/91 98 08/30/16 16:00 105.0 115 16 140/88 97 08/30/16 15:10 104.9 114 20 149/90 92 08/30/16 12:51 101.3 120 16 124/73 99 I/O 08/30/16 08/30/16 08/30/16 08/31/16 08/31/16 08/31/16 07:00 15:00 23:00 07:00 15:00 23:00 Intake Total 480 ml 3908 ml 487 ml Output Total 400 ml Balance 480 ml 3908 ml 87 ml Intake Oral 480 ml 240 ml IV Total 3668 ml 487 ml Output Urine Total 400 ml # Voids 1 2 1 # Bowel Movements 0 Result Diagram: 08/31/16 0411 08/31/16 0411 Imaging Last Impressions Chest X-Ray 08/29/162015 Signed Impressions: Service Date/Time: Monday, August 29, 2016 20:25 - CONCLUSION: No evidence of acute cardiopulmonary disease. Tom Freeman MD Objective Remarks GENERAL: This is a well-nourished, well-developed patient, in no apparent distress. CARDIOVASCULAR: Normal rate and regular rhythm without murmurs, gallops, or rubs. RESPIRATORY: Good respiratory efforts. Breath sounds equal and clear to auscultation bilaterally. GASTROINTESTINAL: Abdomen soft, non-tender, non-distended. Normal active bowel sounds MUSCULOSKELETAL: Extremities without cyanosis, or edema. NEURO: Alert & Oriented x4 to person, place, time, situation. Moves all ext x4 PSYCH: Flat affect. A/P Problem List: (1) Sepsis ICD Code: A41.9 Status: Acute (2) UTI (urinary tract infection) ICD Code: N39.0 Status: Acute (3) JOE (acute kidney injury) ICD Code: N17.9 Status: Acute (4) Hypokalemia ICD Code: E87.6 Status: Acute Assessment and Plan 31-year-old female with: Sepsis with lactic acidosis: UTIs possible source. 2 out of 4 blood cultures with gram-positive cocci. S/p Blood/Urine Cultures. Antibiotics changed to vancomycin and Zosyn. Follow up cultures, CXR w/ no acute findings Gram-positive cocci bacteremia: 2 out of 4 blood cultures. Repeat blood cultures pending, continue antibiotics as above. - Continue vancomycin and Zosyn as above. Follow cultures. - ID consulted for further guidance on antibiotics. Flat affect, h/o depression: Patient guarding at this point. Monitor. Consider psych consult. Sore throat with difficulty swallowing: Throat culture is pending for group A strep and influenza screening UTI: U/a w/ significant UTI. Continue w/ IVF and IV Abx as above. Follow urine cultures. JOE: Resolved with IV fluid. DVT Prophylaxis: SCD/Teds. Discussed with the patient's mother at bedside. Problem Qualifiers (1) Sepsis: Qualified Code: A41.9 - Sepsis, due to unspecified organism (2) UTI (urinary tract infection): Qualified Code: N30.00 - Acute cystitis without hematuria Lesli Lee MD Aug 31, 2016 10:37
--- NOTE | 2016-08-31 13:10 | HHI.CCPN ---
Subjective Remarks/Hospital Course 31-year-old female with a history of Depression presented to the emergency room with complaints of generalized fatigue, nonproductive cough and sore throat x3 days. She had also decreased I mouth intake and fever at home, temp 102.5 while in triage. Denies sick contacts. On arrival, BP 132/83, HR 127, O2 sat 97% on RA, Tmax 103.2. WBC normal. Platelets 108, previously 125 on 07/03/14. Patient was admitted to medical floor however today became more febrile with temperature 105, looking more ill and is transferred to ICU. Objective Vital Signs Date Time Temp Pulse Resp B/P Pulse Ox O2 Delivery O2 Flow Rate FiO2 08/31/16 12:00 98.5 69 18 133/92 100 08/30/16 00:00 Room Air Intake and Output 08/30/16 08/30/16 08/31/16 08:00 16:00 00:00 Intake Total 480 ml 3908 ml Balance 480 ml 3908 ml Result Diagram: 08/31/16 0411 08/31/16 0411 Other Results Microbiology Date/Time Procedure Status Source Growth 08/29/16 20:28 Influenza Types A,B Antigen (RULA) - Final Complete Nasal Washing NEGATIVE FOR FLU A AND B ANTIGEN.... Objective Remarks GENERAL: Well-nourished, well-developed patient. SKIN: Warm and dry. HEAD: Normocephalic. EYES: No scleral icterus. No injection or drainage. NECK: Supple, trachea midline. No JVD or lymphadenopathy. CARDIOVASCULAR: Regular rate and rhythm without murmurs, gallops, or rubs. RESPIRATORY: Breath sounds equal bilaterally. No accessory muscle use. GASTROINTESTINAL: Abdomen soft, non-tender, nondistended. MUSCULOSKELETAL: No cyanosis, or edema. BACK: Nontender without obvious deformity. No CVA tenderness. A/P Problem List: (1) UTI (urinary tract infection) ICD Code: N39.0 Status: Acute (2) Sepsis ICD Code: A41.9 Status: Acute (3) JOE (acute kidney injury) ICD Code: N17.9 Status: Acute Assessment and Plan Fever - Unclear etiology - UTI sepsis - Broad-spectrum antibiotics - Follow-up cultures - Follow-up ID recommendation - Tox screen to rule out toxic etiology - IV steroids trial - Resolved patient remains afebrile since last night Acute kidney injury - Volume loss - Aggressive IV fluid resuscitation - Improved DVT GI prophylaxis -Teds SCD Pepcid Patient has been hemodynamically stable and was on pressors. Comfortable on nasal cannula. Critical care medicine will sign off. Please reconsult as needed. Thank you very much for allowing us to participate in care of this pleasant lady. Level III Problem Qualifiers (1) UTI (urinary tract infection): Qualified Code: N30.00 - Acute cystitis without hematuria (2) Sepsis: Qualified Code: A41.9 - Sepsis, due to unspecified organism Juanpablo Ashford MD Aug 31, 2016 13:10
--- NOTE | 2016-08-31 14:50 | MB ---
cc: JACI GOMEZ MD DATE OF CONSULTATION: 08/31/2016. REASON FOR CONSULTATION: Positive blood culture and sepsis. REQUESTING PHYSICIAN: Dr. Hartmann. HISTORY OF PRESENT ILLNESS: This is a 31-year-old black female who was admitted to the hospital on 08/29. She presented to the emergency department with respiratory symptoms including generalized aches, cough, sore throat and myalgias. The patient noted that the symptoms began approximately three days before she came to the emergency department for evaluation. She was reported to be very listless and weak. She was found to have elevated heart rate and a temperature of 103.2 degrees. Blood cultures were taken on admission and one bottle in both sets has gram-positive cocci and one identified as Staph aureus. The urine culture was performed and it has immature growth. Urinalysis was remarkable for 80 white cells and a large amount of leukocyte esterase. The patient's temperature catrina to 105 degrees after admission on 08/30 and she was transferred to the intensive care unit for further management. She was felt to have improved and was transferred to the medical floor today. Temperature currently is 98.5. She currently is covered up well with the blanket and tells me that she is aching all over. The patient is very reluctant to give medical information. She denies headache, nausea, vomiting, abdominal pain, dysuria. She reports that her pain is mostly in the joints and muscles. Her white blood cell count has been normal since admission but her platelet count has been low. The patient notes that she has had regular menstrual periods. PAST MEDICAL HISTORY: 1. Past medical history of depression. 2. History of multiple urinary tract infections. PAST SURGICAL HISTORY: Significant for: 1. Oophorectomy. 2. section. SOCIAL HISTORY: She denies IV drug use. Denies tobacco use. Denies alcohol use. Denies illicit drug use. ALLERGIES NO KNOWN DRUG ALLERGIES. MEDICATIONS: 1. Vancomycin. 2. Piperacillin / tazobactam. 3. Methylprednisolone. 4. Tylenol PRN. 5. [place] 10 PRN. FAMILY HISTORY: Noncontributory. REVIEW OF SYSTEMS: Pertinent features mentioned history of present illness. The patient denies headache, nausea or vomiting, dysuria. PHYSICAL EXAMINATION: GENERAL: This is a slender female who is in no acute distress but appears somewhat withdrawn. VITAL SIGNS: Temperature 98.5, blood pressure 133/92, respirations 18, heart rate 69. HEAD, EYES, EARS, NOSE, THROAT: The head is atraumatic. Extraocular movements appear grossly intact. The sclerae are pale. No icterus. No nasal bleeding. Oropharynx has moist mucosa. Unable to visualize the posterior oropharynx since the patient does not open her mouth adequately for me. NECK: Supple without adenopathy. LUNGS: Decreased breath sounds throughout. HEART: Regular sinus without other audible murmurs. ABDOMEN: Bowel sounds diminished, soft, no tenderness appreciated. No masses palpable. RECTAL: Not performed. EXTREMITIES: No clubbing or cyanosis or edema. SKIN: No rash. NEUROLOGIC: No gross focal findings. PSYCHIATRIC: The patient is withdrawn and has a flat affect. However, she is cooperative to physical exam. LABORATORY DATA: WBC 4.3, platelets 90,000, hemoglobin 10.1, 88% neutrophils. Creatinine 0.6, sodium 141, lactic acid level of 2.5. IMPRESSION: 1. Severe sepsis due to Staph aureus of questionable etiology. 2. Urinary tract infection. 3. Fever. Temperature appears to be improving. 4. Thrombocytopenia, probably secondary to sepsis. RECOMMENDATIONS: 1. Continue vancomycin. 2. Continue piperacillin / tazobactam. 3. Monitor urine culture. 4. Monitor the blood cultures until finalized. 5. Monitor throat cultures. 6. Obtain 2-D echocardiogram. 7. Consider HIV testing in this patient with very high temperatures on presentation. Thank you for this consultation. The patient's progress will be monitored and further recommendations will be made on followup if necessary. Jaci Gomez MD FD/ALEJANDRO /11:46 AM /1:38 PM
[2016-08-31] MEDS: ACETAMINOPHEN/HYDROcodone 325 MG/10 MG TAB PO PRN (19:45)
[2016-09-01 00:30] VITALS: BP 119/73; PULSE 71; RESP 16; TEMP 97.3; O2SAT 98
[2016-09-01] MEDS: PIPERACIL-TAZO 4.5 GM PREMIX 100 ML IV SCH ×3 (00:34→12:27)
[2016-09-01] MEDS ORDERED: PHARMACY ORDERED LAB XX ONE (01:45)
[2016-09-01] MEDS: ACETAMINOPHEN/HYDROcodone 325 MG/10 MG TAB PO PRN ×3 (02:19→17:54)
[2016-09-01] MEDS: SODIUM CHLOR 0.9% 1000 ML INJ 1,000 ML IV SCH ×2 (02:19→15:39)
[2016-09-01] MEDS: VANCOMYCIN 1,000 MG/NS 250 ML IV SCH ×6 (02:20→17:51)
[2016-09-01 04:00] VITALS: BP_SYST 113; BP_SYST 155; BP_DIAS 68; BP_DIAS 82; PULSE 64; PULSE 69; RESP 18; TEMP 96.9; TEMP 98; O2SAT 100; O2SAT 98
[2016-09-01 07:00] LABS: AUTOMATED NEUTROPHIL # 6.1 TH/MM3 (1.8-7.7); BASOPHIL % 0.4 % (0.0-2.0); EOSINOPHIL % 0.1 % (0.0-4.0); HEMATOCRIT 25.6 % (35.0-46.0); HEMO FLAGS DIFF FINAL; LYMPH % 24.6 % (9.0-44.0); LYMPHOCYTE # 2.1 TH/MM3 (1.0-4.8); MEAN CELL VOLUME 88.4 FL (80.0-100.0); MEAN CORPUSCULAR HEMOGLOBIN 29.7 PG (27.0-34.0); MEAN CORPUSCULAR HGB CONC 33.6 % (32.0-36.0); MONO % 5.2 % (0.0-8.0); NEUT % 69.7 % (16.0-70.0); PLATELET COUNT 111 TH/MM3 (150-450); RED CELL DISTRIBUTION WIDTH 14.1 % (11.6-17.2); WHITE BLOOD COUNT 8.7 TH/MM3 (4.0-11.0)
[2016-09-01 07:32] LABS: ALKALINE PHOSPHATASE 53 U/L (45-117); ALT (GPT) 25 U/L (10-53); ANION GAP 9 MEQ/L (5-15); AST (GOT) 20 U/L (15-37); BLOOD UREA NITROGEN 8 MG/DL (7-18); CHLORIDE 113 MEQ/L (98-107); GLOMERULAR FILTRATION RATE 74 ML/MIN (>89); MAGNESIUM 1.6 MG/DL (1.5-2.5); POTASSIUM 3.4 MEQ/L (3.5-5.1); SODIUM (NA) 144 MEQ/L (136-145); TOTAL BILIRUBIN ADULT 0.2 MG/DL (0.2-1.0)
[2016-09-01 07:59] VITALS: BP 116/75; PULSE 96; RESP 20; TEMP 96.4; O2SAT 98
[2016-09-01] MEDS: SODIUM CHLORIDE 0.9% FLUSH 5 ML FLUSH FLUSH SCH ×2 (09:00→21:00)
--- NOTE | 2016-09-01 10:17 | HHI.PR ---
Subjective Remarks She reports feeling tired. Sore throat is better. No other complaints. She denies feeling depressed. She agreed to HIV testing. Objective Vitals Vital Signs Date Time Temp Pulse Resp B/P Pulse Ox O2 Delivery O2 Flow Rate FiO2 09/01/16 07:59 96.4 96 20 116/75 98 09/01/16 04:00 96.9 69 18 113/68 98 09/01/16 04:00 98.0 64 18 155/82 100 09/01/16 00:30 97.3 71 16 119/73 98 08/31/16 20:00 56 08/31/16 20:00 97.7 70 16 139/92 99 08/31/16 16:00 98.7 76 18 142/102 99 08/31/16 12:00 98.5 69 18 133/92 100 I/O 08/31/16 08/31/16 08/31/16 09/01/16 09/01/16 09/01/16 07:00 15:00 23:00 07:00 15:00 23:00 Intake Total 607 ml 600 ml 1700 ml Output Total 400 ml 600 ml Balance 207 ml 600 ml 1100 ml Intake Oral 120 ml 600 ml 1700 ml IV Total 487 ml Output Urine Total 400 ml 600 ml # Voids 2 1 2 # Bowel Movements 0 Result Diagram: 09/01/16 0642 09/01/16 0642 Objective Remarks GENERAL: This is a well-nourished, well-developed patient, in no apparent distress. CARDIOVASCULAR: Normal rate and regular rhythm without murmurs, gallops, or rubs. RESPIRATORY: Good respiratory efforts. Breath sounds equal and clear to auscultation bilaterally. GASTROINTESTINAL: Abdomen soft, non-tender, non-distended. Normal active bowel sounds MUSCULOSKELETAL: Extremities without cyanosis, or edema. NEURO: Alert & Oriented x4 to person, place, time, situation. Moves all ext x4 PSYCH: Flat affect. A/P Problem List: (1) Sepsis ICD Code: A41.9 Status: Acute (2) UTI (urinary tract infection) ICD Code: N39.0 Status: Acute (3) JOE (acute kidney injury) ICD Code: N17.9 Status: Acute (4) Hypokalemia ICD Code: E87.6 Status: Acute Assessment and Plan 31-year-old female with: Sepsis with bacteremia and lactic acidosis: UTI and Staph Bacteremia. Antibiotics changed to vancomycin and Zosyn. Follow up cultures, CXR w/ no acute findings. Appreciate ID following Staph aureus bacteremia: Repeat blood cultures pending, continue antibiotics as above. - Continue vancomycin and Zosyn as above. Follow cultures. - Appreciate ID following. Will obtain HIV testing. 2D echo pending. Flat affect, h/o depression: Patient denies depression currently. Sore throat with difficulty swallowing: Throat culture is pending for group A strep and influenza screening UTI: Continue w/ IVF and IV Abx as above. Follow urine cultures. JOE: Improving with IVF. DVT Prophylaxis: SCD/Teds. Problem Qualifiers (1) Sepsis: Qualified Code: A41.9 - Sepsis, due to unspecified organism (2) UTI (urinary tract infection): Qualified Code: N30.00 - Acute cystitis without hematuria Lesli Lee MD Sep 01, 2016 10:17 Lesli Lee MD Sep 01, 2016 10:17
--- NOTE | 2016-09-01 11:57 | EC ---
Study Study Date:09/01/2016 STUDY CONCLUSIONS SUMMARY - Left ventricle: The cavity size was normal. Wall thickness was normal. Systolic function was normal. The estimated ejection fraction was in the range of 55% to 60%. Wall motion was normal; there were no regional wall motion abnormalities. - Pulmonary arteries: PA peak pressure: 48mm Hg (S). If LV function is below 40, please consider prescribing an ACEI or ARB or document rationale for non-use. PROCEDURE DATA STUDY STATUS: Elective. Procedure: Transthoracic echocardiography. Image quality was good. Scanning was performed from the parasternal, apical, and subcostal acoustic windows. Study completion: The patient tolerated the procedure well. Transthoracic echocardiography. M-mode, complete 2D, complete spectral Doppler, and color Doppler. Patient status: Inpatient. CARDIAC ANATOMY LEFT VENTRICLE: The cavity size was normal. Wall thickness was normal. Systolic function was normal. The estimated ejection fraction was in the range of 55% to 60%. Wall motion was normal; there were no regional wall motion abnormalities. AORTIC VALVE: Trileaflet; normal thickness leaflets. Doppler: Transvalvular velocity was within the normal range. There was no stenosis. No regurgitation. AORTA: Aortic root: The aortic root was normal in size. MITRAL VALVE: Structurally normal valve. Doppler: Transvalvular velocity was within the normal range. There was no evidence for stenosis. No regurgitation. LEFT ATRIUM: The atrium was normal in size. RIGHT VENTRICLE: The cavity size was normal. Wall thickness was normal. PULMONIC VALVE: Doppler: Transvalvular velocity was within the normal range. There was no evidence for stenosis. No regurgitation. TRICUSPID VALVE: Structurally normal valve. Doppler: Transvalvular velocity was within the normal range. No regurgitation. PULMONARY ARTERY: The main pulmonary artery was normal-sized. Systolic pressure was within the normal range. RIGHT ATRIUM: The atrium was normal in size. PERICARDIUM: There was no pericardial effusion. SYSTEMIC VEINS: Inferior vena cava: The vessel was normal in size. BASIC MEASUREMENTS ADULT NORMAL Left ventricle LV internal dimension, ED, chordal level, 43.1 mm 43-52 PLAX LV internal dimension, ES, chordal level, 33.3 mm 23-38 PLAX Fractional shortening, chordal level, PLAX *23 % >29 LV posterior wall thickness, ED 11.8 mm IVS/LVPW ratio, ED 1.08 <1.3 Ventricular septum Septal thickness, ED 12.8 mm Aortic valve Leaflet separation 21 mm 15-26 Right ventricle RV internal dimension, ED, PLAX 21.7 mm 19-38 BASIC MEASUREMENTS ADULT NORMAL Aortic valve Leaflet separation 21 mm 15-26 Aorta Root diameter, ED 26 mm 20-37 Left atrium Anterior-posterior dimension, ES 34 mm 19-40 LA/aortic root ratio 1.31 DOPPLER MEASUREMENTS ADULT NORMAL Main pulmonary artery Pressure, S *48 mm Hg =30 Tricuspid valve Regurgitant peak velocity 309 cm/s Peak RV-RA gradient, S 38 mm Hg Maximal regurgitant velocity 309 cm/s Systemic veins Estimated CVP 10 mm Hg Right ventricle RV pressure, S *48 mm Hg <30 LEGEND: Mean values are shown as u=mean value. Asterisk (*) calderon values outside specified normal range. Prepared and signed by Parish Marmolejo [id number]
[2016-09-01 12:26] VITALS: BP 145/85; PULSE 93; RESP 18; TEMP 100; O2SAT 96
--- NOTE | 2016-09-01 12:44 | HHI.IDPN ---
Note Infectious Disease Note Patient laying in bed with covers over her head. Notes she has a headache. No other complaints. Denies chills. Afebrile. 2D ECHO noted. Blood culture has staph aureus and tother mixed bacteria. Urine culture has enterococcus. Presented to the emergency department with respiratory symptoms including generalized aches, cough, sore throat and myalgias. PAST MEDICAL HISTORY: 1. Past medical history of depression. 2. History of multiple urinary tract infections. PAST SURGICAL HISTORY: Significant for: 1. Oophorectomy. 2. section. SOCIAL HISTORY: She denies IV drug use. Denies tobacco use. Denies alcohol use. Denies illicit drug use. ALLERGIES NO KNOWN DRUG ALLERGIES. ANTIBIOTICS: 1. Vancomycin. 2. Piperacillin / tazobactam. FAMILY HISTORY: Noncontributory. OBJECTIVE: Vital Signs Date Time Temp Pulse Resp B/P Pulse Ox O2 Delivery O2 Flow Rate FiO2 09/01/16 12:26 100.0 93 18 145/85 96 09/01/16 07:59 96.4 96 20 116/75 98 09/01/16 04:00 96.9 69 18 113/68 98 09/01/16 04:00 98.0 64 18 155/82 100 09/01/16 00:30 97.3 71 16 119/73 98 08/31/16 20:00 56 08/31/16 20:00 97.7 70 16 139/92 99 08/31/16 16:00 98.7 76 18 142/102 99 08/31/16 08/31/16 09/01/16 15:00 23:00 07:00 Intake Total 607 ml 600 ml 1700 ml Output Total 400 ml 600 ml Balance 207 ml 600 ml 1100 ml Intake Oral 120 ml 600 ml 1700 ml IV Total 487 ml Output Urine Total 400 ml 600 ml # Voids 2 1 2 # Bowel Movements 0 Laboratory Tests Test 08/30/16 08/31/16 09/01/16 20:55 04:11 06:42 White Blood Count 5.7 TH/MM3 4.3 TH/MM3 8.7 TH/MM3 Red Blood Count 3.36 MIL/MM3 3.48 MIL/MM3 2.90 MIL/MM3 Hemoglobin 9.9 GM/DL 10.1 GM/DL 8.6 GM/DL Hematocrit 30.1 % 30.9 % 25.6 % Mean Corpuscular Volume 89.6 FL 88.9 FL 88.4 FL Mean Corpuscular Hemoglobin 29.4 PG 29.1 PG 29.7 PG Mean Corpuscular Hemoglobin 32.8 % 32.7 % 33.6 % Concent Red Cell Distribution Width 14.1 % 14.0 % 14.1 % Platelet Count 92 TH/MM3 90 TH/MM3 111 TH/MM3 Mean Platelet Volume 10.4 FL 10.3 FL 10.9 FL Neutrophils (%) (Auto) 86.1 % 88.9 % 69.7 % Lymphocytes (%) (Auto) 9.2 % 8.8 % 24.6 % Monocytes (%) (Auto) 4.2 % 2.2 % 5.2 % Eosinophils (%) (Auto) 0.3 % 0.0 % 0.1 % Basophils (%) (Auto) 0.2 % 0.1 % 0.4 % Neutrophils # (Auto) 4.9 TH/MM3 3.9 TH/MM3 6.1 TH/MM3 Lymphocytes # (Auto) 0.5 TH/MM3 0.4 TH/MM3 2.1 TH/MM3 Monocytes # (Auto) 0.2 TH/MM3 0.1 TH/MM3 0.5 TH/MM3 Eosinophils # (Auto) 0.0 TH/MM3 0.0 TH/MM3 0.0 TH/MM3 Basophils # (Auto) 0.0 TH/MM3 0.0 TH/MM3 0.0 TH/MM3 CBC Comment AUTO DIFF DIFF FINAL DIFF FINAL Differential Total Cells 100 Counted Neutrophils % (Manual) 63 % Band Neutrophils % 23 % Lymphocytes % 10 % Monocytes % 3 % Basophils % 1 % Neutrophils # (Manual) 4.9 TH/MM3 Differential Comment FINAL DIFF MANUAL Platelet Estimate LOW Platelet Morphology Comment ENLARGED Laboratory Tests Test 08/30/16 08/31/16 09/01/16 20:55 04:11 06:42 Sodium Level 141 MEQ/L 141 MEQ/L 144 MEQ/L Potassium Level 3.8 MEQ/L 4.0 MEQ/L 3.4 MEQ/L Chloride Level 109 MEQ/L 112 MEQ/L 113 MEQ/L Carbon Dioxide Level 21.3 MEQ/L 20.5 MEQ/L 22.0 MEQ/L Anion Gap 11 MEQ/L 9 MEQ/L 9 MEQ/L Blood Urea Nitrogen 3 MG/DL 3 MG/DL 8 MG/DL Creatinine 1.08 MG/DL 0.86 MG/DL 1.05 MG/DL Estimat Glomerular Filtration 72 ML/MIN 94 ML/MIN 74 ML/MIN Rate Random Glucose 165 MG/DL 243 MG/DL 136 MG/DL Lactic Acid Level 2.5 mmol/L Calcium Level 7.6 MG/DL 8.0 MG/DL 8.1 MG/DL Total Bilirubin 0.3 MG/DL 0.2 MG/DL Aspartate Amino Transf 15 U/L 20 U/L (AST/SGOT) Alanine Aminotransferase 17 U/L 25 U/L (ALT/SGPT) Alkaline Phosphatase 52 U/L 53 U/L Total Creatine Kinase 53 U/L Total Protein 7.5 GM/DL 6.5 GM/DL Albumin 2.6 GM/DL 2.2 GM/DL Phosphorus Level 2.9 MG/DL Magnesium Level 1.6 MG/DL Microbiology Date/Time Procedure Status Source Growth 08/29/16 20:25 Aerobic Blood Culture - Preliminary Resulted Blood Peripheral NO GROWTH IN 3 DAYS 08/29/16 20:25 Anaerobic Blood Culture - Preliminary Resulted Staph Sp Coagulase Negative 08/29/16 20:28 Influenza Types A,B Antigen (RULA) - Final Complete Nasal Washing NEGATIVE FOR FLU A AND B ANTIGEN.... 08/29/16 21:45 Aerobic Blood Culture - Preliminary Resulted Blood Peripheral Staphylococcus Aureus Staphylococcus Species 08/29/16 21:45 Anaerobic Blood Culture - Preliminary Resulted Staph Sp Coagulase Negative 08/29/16 22:15 Urine Culture - Preliminary Resulted Urine Clean Catch Group D Enterococcus 08/30/16 12:00 Throat Culture - Preliminary Resulted Throat 08/30/16 20:50 Aerobic Blood Culture - Preliminary Resulted Blood Peripheral NO GROWTH IN 2 DAYS 08/30/16 20:50 Anaerobic Blood Culture - Preliminary Resulted Blood Peripheral NO GROWTH IN 2 DAYS PHYSICAL EXAMINATION: GENERAL: No acute distress but appears withdrawn. HEAD, EYES, EARS, NOSE, THROAT: The head is atraumatic. Extraocular movements appear grossly intact. The sclerae are pale. No icterus. No nasal bleeding. Oropharynx has moist mucosa. Unable to visualize the posterior oropharynx since the patient does not open her mouth adequately for me. NECK: Supple without adenopathy. LUNGS: Decreased breath sounds throughout. HEART: Regular sinus without other audible murmurs. ABDOMEN: Bowel sounds diminished, soft, no tenderness appreciated. No masses palpable. EXTREMITIES: No clubbing or cyanosis or edema. SKIN: No rash. NEUROLOGIC: No gross focal findings. PSYCHIATRIC: The patient is withdrawn and has a flat affect. However, she cooperates with physical exam. IMPRESSION: 1. Severe sepsis due to Staph aureus of questionable etiology. 2. Urinary tract infection. Enterococci. Unrelated to the positive blood cultures. 3. Fever. Temperature improved. 4. Thrombocytopenia, probably secondary to sepsis. RECOMMENDATIONS: 1. Continue vancomycin. 2. Stop piperacillin / tazobactam. 3. Follow temps. 4. Follow HIV testing. Williams Sharif MD Sep 01, 2016 12:43
[2016-09-01 20:00] VITALS: BP 110/61; PULSE 101; PULSE 104; RESP 18; TEMP 98.3; O2SAT 94
[2016-09-02 00:18] VITALS: BP 121/72; PULSE 84; RESP 16; TEMP 97.8; O2SAT 98
[2016-09-02] MEDS ORDERED: PHARMACY ORDERED LAB XX ONE (01:45)
[2016-09-02 03:11] LABS: HEMATOCRIT 28.7 % (35.0-46.0); MEAN CORPUSCULAR HEMOGLOBIN 29.4 PG (27.0-34.0); PLATELET COUNT 142 TH/MM3 (150-450); RED BLOOD COUNT 3.23 MIL/MM3 (4.00-5.30); RED CELL DISTRIBUTION WIDTH 14.3 % (11.6-17.2); REVIEW FLAG FINAL; WHITE BLOOD COUNT 6.9 TH/MM3 (4.0-11.0)
[2016-09-02] MEDS: VANCOMYCIN 1,000 MG/NS 250 ML IV SCH ×6 (03:32→17:19)
[2016-09-02 04:12] LABS: BICARBONATE 27.4 MEQ/L (21.0-32.0); POTASSIUM 3.8 MEQ/L (3.5-5.1)
[2016-09-02 04:13] LABS: VANCOMYCIN TROUGH 16.9 MCG/ML (5.0-10.0)
[2016-09-02 04:55] VITALS: BP 120/82; PULSE 71; RESP 16; TEMP 98.7; O2SAT 96
[2016-09-02] MEDS: SODIUM CHLOR 0.9% 1000 ML INJ 1,000 ML IV SCH (04:59)
[2016-09-02 08:12] VITALS: BP 147/83; PULSE 74; RESP 18; TEMP 97.6; O2SAT 99
[2016-09-02] MEDS: SODIUM CHLORIDE 0.9% FLUSH 5 ML FLUSH FLUSH SCH ×2 (09:38→21:33)
[2016-09-02] MEDS: ACETAMINOPHEN/HYDROcodone 325 MG/10 MG TAB PO PRN ×2 (09:39→21:23)
[2016-09-02 12:15] VITALS: BP 114/66; PULSE 88; RESP 18; TEMP 97.6; O2SAT 98
--- NOTE | 2016-09-02 14:57 | HHI.PR ---
Subjective Remarks Patient is afebrile. No new complaints. She still sleeping again with her head covered. She denies mood changes or depression. Objective Vitals Vital Signs Date Time Temp Pulse Resp B/P Pulse Ox O2 Delivery O2 Flow Rate FiO2 09/02/16 12:15 97.6 88 18 114/66 98 09/02/16 10:54 18 09/02/16 08:12 97.6 74 18 147/83 99 09/02/16 04:55 98.7 71 16 120/82 96 09/02/16 00:18 97.8 84 16 121/72 98 09/01/16 20:00 104 09/01/16 20:00 98.3 101 18 110/61 94 I/O 09/01/16 09/01/16 09/01/16 09/02/16 09/02/16 09/02/16 07:00 15:00 23:00 07:00 15:00 23:00 Intake Total 1700 ml 240 ml 852 ml Output Total 600 ml Balance 1100 ml 240 ml 852 ml Intake Oral 1700 ml 240 ml 360 ml IV Total 492 ml Output Urine Total 600 ml # Voids 2 Result Diagram: 09/02/16 0230 09/02/16 0230 Objective Remarks GENERAL: This is a well-nourished, well-developed patient, in no apparent distress. CARDIOVASCULAR: Normal rate and regular rhythm without murmurs, gallops, or rubs. RESPIRATORY: Good respiratory efforts. Breath sounds equal and clear to auscultation bilaterally. GASTROINTESTINAL: Abdomen soft, non-tender, non-distended. Normal active bowel sounds MUSCULOSKELETAL: Extremities without cyanosis, or edema. NEURO: Alert & Oriented x4 to person, place, time, situation. Moves all ext x4 PSYCH: Flat affect. A/P Problem List: (1) Sepsis ICD Code: A41.9 Status: Acute (2) UTI (urinary tract infection) ICD Code: N39.0 Status: Acute (3) JOE (acute kidney injury) ICD Code: N17.9 Status: Acute (4) Hypokalemia ICD Code: E87.6 Status: Acute Assessment and Plan 31-year-old female with: Sepsis with bacteremia and lactic acidosis: UTI and Staph Bacteremia. Maricruz TIPTON, on Vancomycin per ID. Follow up cultures, CXR w/ no acute findings. Staph aureus bacteremia: Repeat blood cultures so far negative, continue antibiotics as above. - Continue vancomycin as above. Follow cultures. - Appreciate ID following. HIV screen negative. 2D echo unremarkable. Flat affect, h/o depression: Patient denies depression currently. Sore throat with difficulty swallowing: Throat culture with beta strep not group A. Antibiotics as above. UTI: Urine grew enterococcus. Continue w IV Abx as above. JOE: Resolved with IVF. DVT Prophylaxis: SCD/Teds. Problem Qualifiers (1) Sepsis: Qualified Code: A41.9 - Sepsis, due to unspecified organism (2) UTI (urinary tract infection): Qualified Code: N30.00 - Acute cystitis without hematuria Lesli Lee MD Sep 02, 2016 14:57
[2016-09-02 17:45] VITALS: BP 139/65; PULSE 91; RESP 20; TEMP 98.2; O2SAT 95
[2016-09-02 20:00] VITALS: BP 125/73; PULSE 77; RESP 16; TEMP 98.8; O2SAT 100
[2016-09-03] VITALS (8 sets, daily range): BP systolic 127–145; BP diastolic 68–88; PULSE 64–80; RESP 16–20; TEMP 96.9–99; O2SAT 95–100
[2016-09-03] MEDS: VANCOMYCIN 1,000 MG/NS 250 ML IV SCH ×6 (01:53→17:27)
[2016-09-03 08:35] LABS: HEMATOCRIT 28.1 % (35.0-46.0); MEAN CELL VOLUME 88.7 FL (80.0-100.0); MEAN CORPUSCULAR HEMOGLOBIN 29.2 PG (27.0-34.0); MEAN CORPUSCULAR HGB CONC 32.9 % (32.0-36.0); PLATELET COUNT 168 TH/MM3 (150-450); RED BLOOD COUNT 3.17 MIL/MM3 (4.00-5.30); RED CELL DISTRIBUTION WIDTH 14.5 % (11.6-17.2); REVIEW FLAG FINAL; WHITE BLOOD COUNT 5.3 TH/MM3 (4.0-11.0)
[2016-09-03 08:56] LABS: BICARBONATE 29.5 MEQ/L (21.0-32.0); POTASSIUM 3.7 MEQ/L (3.5-5.1)
[2016-09-03] MEDS: SODIUM CHLORIDE 0.9% FLUSH 5 ML FLUSH FLUSH SCH ×2 (09:47→21:00)
--- NOTE | 2016-09-03 12:07 | HHI.PR ---
Subjective Remarks Patient reports that she is feeling better. Still with a guarded attitude. Head covered. She has no complaints. Afebrile. Objective Vitals Vital Signs Date Time Temp Pulse Resp B/P Pulse Ox O2 Delivery O2 Flow Rate FiO2 09/03/16 11:58 98.4 64 18 143/86 98 09/03/16 09:48 73 18 142/79 98 09/03/16 07:44 97.3 65 18 127/80 100 09/03/16 04:00 97.6 70 16 145/76 97 09/03/16 00:11 98.9 67 18 130/68 96 09/02/16 20:00 98.8 77 16 125/73 100 09/02/16 17:45 09/02/16 12:15 97.6 88 18 114/66 98 I/O 09/02/16 09/02/16 09/02/16 09/03/16 09/03/16 09/03/16 07:00 15:00 23:00 07:00 15:00 23:00 Intake Total 360 ml 900 ml Balance 360 ml 900 ml Intake Oral 360 ml 900 ml # Voids 6 # Bowel Movements 1 Result Diagram: 09/03/16 0732 09/03/16 0732 Imaging Last Impressions Chest X-Ray 08/29/162015 Signed Impressions: Service Date/Time: Monday, August 29, 2016 20:25 - CONCLUSION: No evidence of acute cardiopulmonary disease. Tom Freeman MD Objective Remarks GENERAL: This is a well-nourished, well-developed patient, in no apparent distress. CARDIOVASCULAR: Normal rate and regular rhythm without murmurs, gallops, or rubs. RESPIRATORY: Good respiratory efforts. Breath sounds equal and clear to auscultation bilaterally. GASTROINTESTINAL: Abdomen soft, non-tender, non-distended. Normal active bowel sounds MUSCULOSKELETAL: Extremities without cyanosis, or edema. NEURO: Alert & Oriented x4 to person, place, time, situation. Moves all ext x4 PSYCH: Flat affect. A/P Problem List: (1) Sepsis ICD Code: A41.9 Status: Acute (2) UTI (urinary tract infection) ICD Code: N39.0 Status: Acute (3) JOE (acute kidney injury) ICD Code: N17.9 Status: Acute (4) Hypokalemia ICD Code: E87.6 Status: Acute Assessment and Plan 31-year-old female with: Sepsis with bacteremia and lactic acidosis: UTI and Staph Bacteremia. Zosyn DC, on Vancomycin per ID. Follow up repeat blood cultures so far negative, CXR w/ no acute findings. Staph aureus bacteremia: Repeat blood cultures so far negative, continue antibiotics as above. - Continue vancomycin as above. Follow cultures. - Appreciate ID following. HIV screen negative. 2D echo unremarkable. Flat affect, h/o depression: Patient denies depression currently. Sore throat with difficulty swallowing: Throat culture with beta strep not group A. Antibiotics as above. UTI: Urine grew enterococcus. Continue w IV Abx as above. JOE: Resolved with IVF. DVT Prophylaxis: SCD/Teds. Discharge Planning Will depend on antibiotic course. We'll discuss with infectious disease. Problem Qualifiers (1) Sepsis: Qualified Code: A41.9 - Sepsis, due to unspecified organism (2) UTI (urinary tract infection): Qualified Code: N30.00 - Acute cystitis without hematuria Lesli Lee MD Sep 03, 2016 12:07
[2016-09-03 16:11] LABS: VMA 24 HR ADULT 3.5 mg/24 h (<8.0); VMA 24 HR COLLECT DURATION 24 h (()); VMA 24 HR URINE VOLUME 1950 mL (())
[2016-09-03] MEDS: ACETAMINOPHEN/HYDROcodone 325 MG/10 MG TAB PO PRN (21:00)
[2016-09-04] VITALS: BP 141/76; PULSE 58; RESP 21; TEMP 97.8; O2SAT 97
[2016-09-04] MEDS ORDERED: FLUCONAZOLE 100 MG TAB PO ONE (00:45)
[2016-09-04] MEDS: VANCOMYCIN 1,000 MG/NS 250 ML IV SCH ×6 (03:05→18:12)
[2016-09-04 04:00] VITALS: BP 150/82; PULSE 64; RESP 16; TEMP 97.8; O2SAT 94
[2016-09-04 09:38] VITALS: BP 130/75; PULSE 66; RESP 18; TEMP 97.5; O2SAT 95
[2016-09-04] MEDS: SODIUM CHLORIDE 0.9% FLUSH 5 ML FLUSH FLUSH SCH ×2 (09:57→21:00)
[2016-09-04 10:08] LABS: POTASSIUM 3.9 MEQ/L (3.5-5.1)
[2016-09-04 10:16] LABS: MEAN CORPUSCULAR HEMOGLOBIN 28.3 PG (27.0-34.0); MEAN CORPUSCULAR HGB CONC 32.1 % (32.0-36.0); PLATELET COUNT 218 TH/MM3 (150-450); RED BLOOD COUNT 3.52 MIL/MM3 (4.00-5.30); REVIEW FLAG FINAL; WHITE BLOOD COUNT 6.6 TH/MM3 (4.0-11.0)
[2016-09-04 12:49] VITALS: BP 124/84; PULSE 79; RESP 20; TEMP 98; O2SAT 99
--- NOTE | 2016-09-04 13:53 | HHI.IDPN ---
Note Infectious Disease Note Patient feels better. Had covers over her head when I entered the room. Seems more interactive. Denies chills. denies joint aches. Afebrile. Presented to the emergency department with respiratory symptoms including generalized aches, cough, sore throat and myalgias. PAST MEDICAL HISTORY: 1. Past medical history of depression. 2. History of multiple urinary tract infections. PAST SURGICAL HISTORY: 1. Oophorectomy. 2. section. SOCIAL HISTORY: She denies IV drug use. Denies tobacco use. Denies alcohol use. Denies illicit drug use. ALLERGIES NO KNOWN DRUG ALLERGIES. ANTIBIOTICS: Vancomycin. FAMILY HISTORY: Noncontributory. OBJECTIVE: Vital Signs Date Time Temp Pulse Resp B/P Pulse Ox O2 Delivery O2 Flow Rate FiO2 09/04/16 12:49 98.0 79 20 124/84 99 09/04/16 09:38 97.5 66 18 130/75 95 09/04/16 04:00 97.8 64 16 150/82 94 09/04/16 00:00 97.8 58 21 141/76 97 09/03/16 21:00 71 09/03/16 20:52 99.0 80 20 139/88 95 09/03/16 15:45 96.9 72 18 139/78 99 09/03/16 09/03/16 09/04/16 14:59 22:59 06:59 Intake Total 480 ml Balance 480 ml Intake Oral 480 ml # Voids 3 # Bowel Movements 0 Laboratory Tests Test 09/03/16 09/04/16 07:32 09:31 White Blood Count 5.3 TH/MM3 6.6 TH/MM3 Red Blood Count 3.17 MIL/MM3 3.52 MIL/MM3 Hemoglobin 9.3 GM/DL 10.0 GM/DL Hematocrit 28.1 % 31.0 % Mean Corpuscular Volume 88.7 FL 88.0 FL Mean Corpuscular Hemoglobin 29.2 PG 28.3 PG Mean Corpuscular Hemoglobin 32.9 % 32.1 % Concent Red Cell Distribution Width 14.5 % 14.0 % Platelet Count 168 TH/MM3 218 TH/MM3 Mean Platelet Volume 10.1 FL 9.6 FL Laboratory Tests Test 09/03/16 09/04/16 07:32 09:31 Sodium Level 142 MEQ/L 141 MEQ/L Potassium Level 3.7 MEQ/L 3.9 MEQ/L Chloride Level 106 MEQ/L 104 MEQ/L Carbon Dioxide Level 29.5 MEQ/L 29.0 MEQ/L Anion Gap 7 MEQ/L 8 MEQ/L Blood Urea Nitrogen 9 MG/DL 8 MG/DL Creatinine 0.89 MG/DL 0.92 MG/DL Estimat Glomerular Filtration 90 ML/MIN 87 ML/MIN Rate Random Glucose 94 MG/DL 87 MG/DL Calcium Level 8.0 MG/DL 8.8 MG/DL Microbiology Date/Time Procedure Status Source Growth 08/29/16 20:25 Aerobic Blood Culture - Preliminary Resulted Blood Peripheral NO GROWTH IN 3 DAYS 08/29/16 20:25 Anaerobic Blood Culture - Preliminary Resulted Staph Sp Coagulase Negative 08/29/16 20:28 Influenza Types A,B Antigen (RULA) - Final Complete Nasal Washing NEGATIVE FOR FLU A AND B ANTIGEN.... 08/29/16 21:45 Aerobic Blood Culture - Preliminary Resulted Blood Peripheral Staphylococcus Aureus Staphylococcus Species 08/29/16 21:45 Anaerobic Blood Culture - Preliminary Resulted Staph Sp Coagulase Negative 08/29/16 22:15 Urine Culture - Preliminary Resulted Urine Clean Catch Group D Enterococcus 08/30/16 12:00 Throat Culture - Preliminary Resulted Throat 08/30/16 20:50 Aerobic Blood Culture - Preliminary Resulted Blood Peripheral NO GROWTH IN 2 DAYS 08/30/16 20:50 Anaerobic Blood Culture - Preliminary Resulted Blood Peripheral NO GROWTH IN 2 DAYS PHYSICAL EXAMINATION: GENERAL: No acute distress. HEAD, EYES, EARS, NOSE, THROAT: No icterus. Oropharynx has moist mucosa. NECK: Supple without adenopathy. LUNGS: Decreased breath sounds. HEART: Regular sinus without other audible murmurs. ABDOMEN: Bowel sounds diminished, soft, no tenderness. EXTREMITIES: No clubbing or cyanosis or edema. SKIN: No rash. NEUROLOGIC: No gross focal findings. PSYCHIATRIC: Withdrawn, calm and cooperative. IMPRESSION: 1. Severe sepsis due to Staph aureus of questionable etiology. Improved. 2. Urinary tract infection. Enterococci. Unrelated to the positive blood cultures. 3. Fever. Temperature improved. 4. Thrombocytopenia, probably secondary to sepsis. Improved. RECOMMENDATIONS: Continue vancomycin. Patient had other staph species in the blood culture but because of the staph aureus and sepsis on admission I would treat her with a full 10 days of the Vancomycin. D/W Dr. Lee. Williams Sharif MD Sep 04, 2016 13:53
--- NOTE | 2016-09-04 14:50 | HHI.PR ---
Subjective Remarks Patient reports that she is feeling okay today. Afebrile. Objective Vitals Vital Signs Date Time Temp Pulse Resp B/P Pulse Ox O2 Delivery O2 Flow Rate FiO2 09/04/16 12:49 98.0 79 20 124/84 99 09/04/16 09:38 97.5 66 18 130/75 95 09/04/16 04:00 97.8 64 16 150/82 94 09/04/16 00:00 97.8 58 21 141/76 97 09/03/16 21:00 71 09/03/16 20:52 99.0 80 20 139/88 95 09/03/16 15:45 96.9 72 18 139/78 99 I/O 09/03/16 09/03/16 09/03/16 09/04/16 09/04/16 09/04/16 07:00 15:00 23:00 07:00 15:00 23:00 Intake Total 480 ml Balance 480 ml Intake Oral 480 ml # Voids 3 # Bowel Movements 0 Result Diagram: 09/04/1693009/04/16930 Objective Remarks GENERAL: This is a well-nourished, well-developed patient, in no apparent distress. CARDIOVASCULAR: Normal rate and regular rhythm without murmurs, gallops, or rubs. RESPIRATORY: Good respiratory efforts. Breath sounds equal and clear to auscultation bilaterally. GASTROINTESTINAL: Abdomen soft, non-tender, non-distended. Normal active bowel sounds MUSCULOSKELETAL: Extremities without cyanosis, or edema. NEURO: Alert & Oriented x4 to person, place, time, situation. Moves all ext x4 PSYCH: Flat affect. A/P Problem List: (1) Sepsis ICD Code: A41.9 Status: Acute (2) UTI (urinary tract infection) ICD Code: N39.0 Status: Acute (3) JOE (acute kidney injury) ICD Code: N17.9 Status: Acute (4) Hypokalemia ICD Code: E87.6 Status: Acute Assessment and Plan 31-year-old female with: Sepsis with bacteremia and lactic acidosis: UTI and Staph Bacteremia. Maricruz TIPTON, on Vancomycin per ID. Follow up repeat blood cultures so far negative, CXR w/ no acute findings. - Discussed with infectious disease. Patient to continue vancomycin to complete a course of 10 days. Stop date 09/09/15 Staph aureus bacteremia: Repeat blood cultures so far negative, continue antibiotics as above. - Appreciate ID following. HIV screen negative. 2D echo unremarkable. Flat affect, h/o depression: Patient denies depression currently. Sore throat with difficulty swallowing: Throat culture with beta strep not group A. Antibiotics as above. UTI: Urine grew enterococcus. Continue w IV Abx as above. JOE: Resolved with IVF. DVT Prophylaxis: SCD/Teds. Discharge Planning Plan to DC on 09/08/16 once antibiotics course complete. Problem Qualifiers (1) Sepsis: Qualified Code: A41.9 - Sepsis, due to unspecified organism (2) UTI (urinary tract infection): Qualified Code: N30.00 - Acute cystitis without hematuria Lesli Lee MD Sep 04, 2016 14:50
[2016-09-04 15:13] VITALS: BP 117/68; PULSE 76; RESP 18; TEMP 98.6; O2SAT 97
[2016-09-04 20:00] VITALS: PULSE 75
[2016-09-05] VITALS (7 sets, daily range): BP systolic 105–153; BP diastolic 64–97; PULSE 64–87; RESP 16–20; TEMP 97.7–98.8; O2SAT 97–100
[2016-09-05] MEDS: VANCOMYCIN 1,000 MG/NS 250 ML IV SCH ×6 (01:30→17:45)
--- NOTE | 2016-09-05 14:11 | HHI.PR ---
Subjective Remarks Patient reports feeling ok except for discomfort at the IV site. Old infiltrated IV site is also painful. No fevers or chills. Objective Vitals Vital Signs Date Time Temp Pulse Resp B/P Pulse Ox O2 Delivery O2 Flow Rate FiO2 09/05/16 12:47 98.3 68 18 117/68 98 09/05/16 08:00 97.7 64 18 153/97 98 09/05/16 07:00 84 09/05/16 04:00 98.4 71 16 122/75 100 09/05/16 00:00 98.7 87 18 105/64 98 09/04/16 20:00 75 09/04/16 15:13 98.6 76 18 117/68 97 I/O 09/04/16 09/04/16 09/04/16 09/05/16 09/05/16 09/05/16 07:00 15:00 23:00 07:00 15:00 23:00 Intake Total 240 ml 670 ml Balance 240 ml 670 ml Intake Oral 240 ml 420 ml IV Total 250 ml # Voids 4 5 # Bowel Movements 0 Result Diagram: 09/04/1631 09/04/1631 Objective Remarks GENERAL: This is a well-nourished, well-developed patient, in no apparent distress. CARDIOVASCULAR: Normal rate and regular rhythm without murmurs, gallops, or rubs. RESPIRATORY: Good respiratory efforts. Breath sounds equal and clear to auscultation bilaterally. GASTROINTESTINAL: Abdomen soft, non-tender, non-distended. Normal active bowel sounds MUSCULOSKELETAL: Extremities without cyanosis, or edema. NEURO: Alert & Oriented x4 to person, place, time, situation. Moves all ext x4 PSYCH: Flat affect. A/P Problem List: (1) Sepsis ICD Code: A41.9 Status: Acute (2) UTI (urinary tract infection) ICD Code: N39.0 Status: Acute (3) JOE (acute kidney injury) ICD Code: N17.9 Status: Acute (4) Hypokalemia ICD Code: E87.6 Status: Acute Assessment and Plan 31-year-old female with: Sepsis with bacteremia and lactic acidosis: UTI and Staph Bacteremia. Maricruz TIPTON, on Vancomycin per ID. Follow up repeat blood cultures so far negative, CXR w/ no acute findings. - Discussed with infectious disease. Patient to continue vancomycin to complete a course of 10 days. Continue IV antibiotics. Stop date 09/09/15 Staph aureus bacteremia: Repeat blood cultures so far negative, continue antibiotics as above. - Appreciate ID following. HIV screen negative. 2D echo unremarkable. Flat affect, h/o depression: Patient denies depression currently. Mood seems better today. Sore throat with difficulty swallowing: Throat culture with beta strep not group A. Antibiotics as above. UTI: Urine grew enterococcus. Continue w IV Abx as above. JOE: Resolved with IVF. DVT Prophylaxis: SCD/Teds. Discharge Planning Plan to DC on 09/08/16 once antibiotics course complete. Problem Qualifiers (1) Sepsis: Qualified Code: A41.9 - Sepsis, due to unspecified organism (2) UTI (urinary tract infection): Qualified Code: N30.00 - Acute cystitis without hematuria Lesli Lee MD Sep 05, 2016 14:11
[2016-09-05] MEDS: SODIUM CHLORIDE 0.9% FLUSH 5 ML FLUSH FLUSH SCH ×2 (19:55→19:56)
[2016-09-06] VITALS (8 sets, daily range): BP systolic 97–135; BP diastolic 54–80; PULSE 64–97; RESP 16–18; TEMP 96.8–98.3; O2SAT 97–100
[2016-09-06] MEDS: VANCOMYCIN 1,000 MG/NS 250 ML IV SCH ×6 (00:25→17:42)
--- NOTE | 2016-09-06 10:10 | HHI.PR ---
Subjective Remarks Patient seen and examined this morning. When asked if she needs anything she states "no", and when asked how she is doing this morning, she states "I'm fine ". Denies fevers or chills, chest pain or shortness of breath. Objective Vital Signs Date Time Temp Pulse Resp B/P Pulse Ox O2 Delivery O2 Flow Rate FiO2 09/06/16 08:32 96.8 71 16 118/70 98 09/06/16 04:48 96.9 64 18 135/69 97 09/06/16 00:39 74 09/06/16 00:00 98.0 80 18 122/80 98 09/05/16 20:00 98.6 77 20 129/79 97 09/05/16 15:59 98.8 83 18 142/76 100 09/05/16 12:47 98.3 68 18 117/68 98 I/O 09/05/16 09/05/16 09/05/16 09/06/16 09/06/16 09/06/16 07:00 15:00 23:00 07:00 15:00 23:00 Intake Total 670 ml 720 ml 120 ml Balance 670 ml 720 ml 120 ml Intake Oral 420 ml 720 ml 120 ml IV Total 250 ml # Voids 5 4 2 # Bowel Movements 0 Result Diagram: 09/04/16 0931 09/06/16 0709 Imaging Last Impressions Chest X-Ray 08/29/162015 Signed Impressions: Service Date/Time: Monday, August 29, 2016 20:25 - CONCLUSION: No evidence of acute cardiopulmonary disease. Tom Freeman MD Objective Remarks GENERAL: This is a well-nourished, well-developed patient, in no apparent distress. CARDIOVASCULAR: Normal rate and regular rhythm without murmurs, gallops, or rubs. RESPIRATORY: Good respiratory efforts. Breath sounds equal and clear to auscultation bilaterally. GASTROINTESTINAL: Abdomen soft, non-tender, non-distended. Normal active bowel sounds MUSCULOSKELETAL: Extremities without cyanosis, or edema. NEURO: Alert & Oriented x4 to person, place, time, situation. Moves all ext x4 PSYCH: Flat affect. A/P Problem List: (1) UTI (urinary tract infection) ICD Code: N39.0 (2) Sepsis ICD Code: A41.9 (3) JOE (acute kidney injury) ICD Code: N17.9 (4) Hypokalemia ICD Code: E87.6 Assessment and Plan 31-year-old female with: Sepsis with bacteremia and lactic acidosis: UTI and Staph Bacteremia. Maricruz DC, on Vancomycin per ID. Follow up repeat blood cultures so far negative, CXR w/ no acute findings. - Per infectious disease: patient to continue vancomycin to complete a course of 10 days. Continue IV antibiotics. Stop date 09/09/15 Staph aureus bacteremia: Repeat blood cultures so far negative, continue antibiotics as above. - Appreciate ID following. HIV screen negative. 2D echo unremarkable. Flat affect, h/o depression: Patient denies depression currently. Sore throat with difficulty swallowing: Throat culture with beta strep not group A. Antibiotics as above. UTI: Urine grew enterococcus. Continue w IV Abx as above. JOE: Resolved with IVF. DVT Prophylaxis: SCD/Teds. Problem Qualifiers (1) UTI (urinary tract infection): Qualified Code: N30.00 - Acute cystitis without hematuria (2) Sepsis: Qualified Code: A41.9 - Sepsis, due to unspecified organism Bria Morales MD Sep 06, 2016 10:10
[2016-09-06] MEDS: SODIUM CHLORIDE 0.9% FLUSH 5 ML FLUSH FLUSH SCH ×2 (10:27→21:38)
[2016-09-07] VITALS (7 sets, daily range): BP systolic 117–143; BP diastolic 68–82; PULSE 73–88; RESP 16–20; TEMP 97.5–98.3; O2SAT 98–100
[2016-09-07] MEDS: VANCOMYCIN 1,000 MG/NS 250 ML IV SCH ×6 (03:00→18:04)
--- NOTE | 2016-09-07 07:19 | HHI.PR ---
Subjective Remarks Patient seen and examined this morning. When asked if she needs anything she states "no". She denies fevers or chills, nausea or vomiting, chest pain or shortness of breath. Objective Vital Signs Date Time Temp Pulse Resp B/P Pulse Ox O2 Delivery O2 Flow Rate FiO2 09/07/16 04:30 97.6 73 16 121/71 100 09/07/16 00:35 97.6 79 18 128/76 98 09/06/16 20:51 98.3 92 18 133/72 100 09/06/16 16:00 98.2 67 16 121/71 99 09/06/16 14:08 78 09/06/16 12:24 97.8 97 16 97/54 98 09/06/16 08:32 96.8 71 16 118/70 98 I/O 09/06/16 09/06/16 09/06/16 09/07/16 09/07/16 09/07/16 07:00 15:00 23:00 07:00 15:00 23:00 Intake Total 120 ml 960 ml 480 ml 240 ml Balance 120 ml 960 ml 480 ml 240 ml Intake Oral 120 ml 960 ml 480 ml 240 ml # Voids 2 4 1 1 # Bowel Movements 1 Result Diagram: 09/04/16 0931 09/06/16 0709 Imaging Last Impressions Chest X-Ray 08/29/162015 Signed Impressions: Service Date/Time: Monday, August 29, 2016 20:25 - CONCLUSION: No evidence of acute cardiopulmonary disease. Tom Freeman MD Objective Remarks GENERAL: This is a well-nourished, well-developed patient, in no apparent distress. CARDIOVASCULAR: Normal rate and regular rhythm without murmurs, gallops, or rubs. RESPIRATORY: Good respiratory efforts. Breath sounds equal and clear to auscultation bilaterally. GASTROINTESTINAL: Abdomen soft, non-tender, non-distended. Normal active bowel sounds MUSCULOSKELETAL: Extremities without cyanosis, or edema. NEURO: Alert & Oriented. MAEW. PSYCH: Flat affect. A/P Problem List: (1) UTI (urinary tract infection) ICD Code: N39.0 (2) Sepsis ICD Code: A41.9 (3) JOE (acute kidney injury) ICD Code: N17.9 (4) Hypokalemia ICD Code: E87.6 Assessment and Plan 31-year-old female with: Sepsis with bacteremia and lactic acidosis: UTI and Staph Bacteremia. Maricruz TIPTON, on Vancomycin per ID. Follow up repeat blood cultures so far negative, CXR w/ no acute findings. - Per infectious disease: patient to continue vancomycin to complete a course of 10 days. Continue IV antibiotics. Stop date 09/09/15 Staph aureus bacteremia: Repeat blood cultures so far negative, continue antibiotics as above. - Appreciate ID following. HIV screen negative. 2D echo unremarkable. Flat affect, h/o depression: Patient denies depression currently. Sore throat with difficulty swallowing: Throat culture with beta strep not group A. Antibiotics as above. UTI: Urine grew enterococcus. Continue w IV Abx as above. JOE: Resolved with IVF. DVT Prophylaxis: SCD/Teds. Problem Qualifiers (1) UTI (urinary tract infection): Qualified Code: N30.00 - Acute cystitis without hematuria (2) Sepsis: Qualified Code: A41.9 - Sepsis, due to unspecified organism Bria Morales MD Sep 07, 2016 07:19
[2016-09-07] MEDS: SODIUM CHLORIDE 0.9% FLUSH 5 ML FLUSH FLUSH SCH ×2 (09:59→19:24)
[2016-09-07] MEDS ORDERED: DOCUSATE SODIUM 50 MG/SENNA 8.6 MG TAB PO PRN (11:15)
[2016-09-07] MEDS: ACETAMINOPHEN 325 MG TAB PO PRN (23:31)
[2016-09-08] VITALS: BP 119/70; PULSE 79; RESP 18; TEMP 98.1; O2SAT 100
[2016-09-08] MEDS: VANCOMYCIN 1,000 MG/NS 250 ML IV SCH ×4 (02:00→10:36)
[2016-09-08 04:00] VITALS: BP 113/66; PULSE 73; RESP 18; TEMP 97.9; O2SAT 99
[2016-09-08 07:32] LABS: AUTOMATED NEUTROPHIL # 3.2 TH/MM3 (1.8-7.7); BASOPHIL % 0.6 % (0.0-2.0); EOSINOPHIL # 0.1 TH/MM3 (0-0.4); EOSINOPHIL % 2.6 % (0.0-4.0); HEMATOCRIT 28.1 % (35.0-46.0); HEMO FLAGS DIFF FINAL; LYMPH % 31.6 % (9.0-44.0); LYMPHOCYTE # 1.8 TH/MM3 (1.0-4.8); MEAN CELL VOLUME 87.9 FL (80.0-100.0); NEUT % 57.2 % (16.0-70.0); PLATELET COUNT 293 TH/MM3 (150-450); RED CELL DISTRIBUTION WIDTH 14.2 % (11.6-17.2); WHITE BLOOD COUNT 5.6 TH/MM3 (4.0-11.0)
[2016-09-08 08:00] VITALS: BP 117/64; PULSE 71; PULSE 84; RESP 18; TEMP 97.4; O2SAT 99
[2016-09-08 08:08] LABS: BICARBONATE 26.4 MEQ/L (21.0-32.0); POTASSIUM 3.9 MEQ/L (3.5-5.1)
[2016-09-08] MEDS: SODIUM CHLORIDE 0.9% FLUSH 5 ML FLUSH FLUSH SCH (10:39)
[2016-09-08 12:00] VITALS: BP 133/81; PULSE 88; RESP 18; TEMP 98; O2SAT 100
--- NOTE | 2016-09-08 12:39 | HHI.DS ---
Discharge Summary Admission Date Aug 29, 2016 at 23:31 Discharge Date: Sep 08, 2016 Admitting Diagnosis sepsis, urinary tract infection (1) Sepsis ICD Code: A41.9 (2) UTI (urinary tract infection) ICD Code: N39.0 (3) JOE (acute kidney injury) ICD Code: N17.9 (4) Hypokalemia ICD Code: E87.6 Procedures No invasive procedures. Brief History - From Admission This is a 31-year-old female with a PMH of Depression who presents to the ER with complaints of generalized fatigue, nonproductive cough and sore throat x3 days. Notes decreased PO intake and fever at home, temp 102.5 while in triage. Denies sick contacts. On arrival, BP 132/83, HR 127, O2 sat 97% on RA, Temp 102.8, Tmax 103.2. WBC normal. Platelets 108, previously 125 on 07/03/14. K+ 3.0. Creatinine 1.43, previously 0.94 on 05/24/16. Lactic Acid 3.3, repeat pending. U/a w/ significant UTI. CXR w/ no acute findings. S/p Blood/Urine cultures in ER, IVF and IV Rocephin. CBC/BMP: 09/08/16 0623 09/08/16 0623 Significant Findings Laboratory Tests Test 09/08/16 06:23 Red Blood Count 3.20 MIL/MM3 (4.00-5.30) Hemoglobin 9.3 GM/DL (11.6-15.3) Hematocrit 28.1 % (35.0-46.0) Imaging Last Impressions Chest X-Ray 08/29/162015 Signed Impressions: Service Date/Time: Monday, August 29, 2016 20:25 - CONCLUSION: No evidence of acute cardiopulmonary disease. Tom Freeman MD PE at Discharge GENERAL: This is a well-nourished, well-developed patient, in no apparent distress. CARDIOVASCULAR: Normal rate and regular rhythm without murmurs, gallops, or rubs. RESPIRATORY: Good respiratory efforts. Breath sounds equal and clear to auscultation bilaterally. GASTROINTESTINAL: Abdomen soft, non-tender, non-distended. Normal active bowel sounds MUSCULOSKELETAL: Extremities without cyanosis, or edema. NEURO: Alert & Oriented x4 to person, place, time, situation. Moves all ext x4 PSYCH: Flat affect. Pt update on day of discharge She says she is feeling well. Says she feels like going home. Denies any pain. Denies ever having dysuria. Denies any IV drug use. Hospital Course Patient was treated for sepsis with broad-spectrum antibiotics. Urinary tract infection with enterococcus, as well as bacteremia with staph aureus, as well as staph epidermidis. Sepsis resolved. Infectious disease recommended completing treatment with vancomycin 10 day course IV. She was feeling well, and was discharged after completing course of vancomycin. She'll need to follow -up with primary care. For problem-based summary for most recent progress note, please see below. 31-year-old female with: //Sepsis with bacteremia and lactic acidosis: UTI and Staph Bacteremia. Had fever, as well as 23% bands. Maricruz TIPTON, on Vancomycin per ID. Follow up repeat blood cultures so far negative, CXR w/ no acute findings. - Per infectious disease: patient to continue vancomycin to complete a course of 10 days. Continue IV antibiotics. Stop date 09/09/1509/08. Patient has completed course of IV vancomycin. She feels well. Discharge home. Staph aureus bacteremia: Repeat blood cultures so far negative, continue antibiotics as above. - Appreciate ID following. HIV screen negative. 2D echo unremarkable. -09/08. Patient feels well. Has completed antibiotics. Discharge home. Flat affect, h/o depression: Patient denies depression currently. -09/08. Patient continues to deny SI/HI. Sore throat with difficulty swallowing: Throat culture with beta strep not group A. Antibiotics as above. UTI: Urine grew enterococcus. His post IV vancomycin as above. JOE: Resolved with IVF. DVT Prophylaxis: SCD/Teds. Pt Condition on Discharge: Good Discharge Disposition: Discharge Home Discharge Time: > 30 minutes Discharge Instructions DIET: Follow Instructions for: As Tolerated, No Restrictions Activities you can perform: Regular-No Restrictions Follow up Referrals: PCP Follow-up - 1 Week with Martha Acharya MD Medication Profile: No Active Prescriptions or Reported Meds Rogelio Starr MD Sep 08, 2016 12:39
[2016-09-09] MEDS ORDERED: PHARMACY ORDERED LAB XX ONE (09:45)
== END 2016-09-08 13:16 | disposition home or self-care (01) | DRG 872 ==
LOC: NEPC 19:09 → NEDA 23:31 → HOCB 08-30 01:48 → N03B 08-30 17:44 → N05B 08-31 09:32
PROVIDERS: ADMIT Internal Medicine; ATTEND Internal Medicine
DX: A41.01 Sepsis due to Methicillin susceptible Staphylococcus aureus (principal); N17.9 Acute kidney failure, unspecified; E87.2 Acidosis; D69.59 Other secondary thrombocytopenia; E86.0 Dehydration; N30.00 Acute cystitis without hematuria; E87.6 Hypokalemia; F32.9 Major depressive disorder, single episode, unspecified; Z87.440 Personal history of urinary (tract) infections; R65.20 Severe sepsis without septic shock; B95.2 Enterococcus as the cause of diseases classified elsewhere
CPT/HCPCS: 71010; 76937; 80048; 80053; 80202; 80307; 81001; 82550; 82565; 83605; 83735; 84100; 84443; 84585; 85007; 85025; 85027; 86403; 86703; 87040; 87070; 87077; 87086; 87147; 87186; 87205; 87491; 87591; 87804; 93306; 96361; 96365; 96375; J0131; J0696; J1885; J2060; J2405; J2543; J2920; J3370; J7030; J7050